=== PATIENT | male | born 1945 | race Caucasian/White ===

== ENCOUNTER 2017-10-04 12:42 | Emergency (ER) | payer MEDICARE, SELFPAY ==
[2017-10-04 12:43] VITALS: BP 121/71; PULSE 100; RESP 17; TEMP 37.1; O2SAT 93; BMI 27.8
--- NOTE | 2017-10-04 13:00 | RAD_ITS ---
STUDY: X-RAY - UNILATERAL RIBS ( LEFT ) WITH CHEST REASON FOR EXAM: Male, 72 years old. Left-sided rib pain following a recent fall. TECHNIQUE - RIBS: 5 view(s) of the ribs. TECHNIQUE - CHEST: Single PA view of the chest. COMPARISON: Comparison is made with prior chest radiograph dated October 24, 2016. FINDINGS - RIBS: Normal visualized ribs without a demonstrated fracture. FINDINGS - CHEST: Scattered calcified granulomas. There is no demonstrated pleural abnormality. Normal size heart. Normal mediastinum and louann. Normal visualized pulmonary arteries. There is atherosclerotic calcification of the aortic arch with tortuosity. Normal visualized thoracic spine. Normal visualized ribs, clavicles, and shoulders. Prior cholecystectomy. RAD/Ribs Uni Min 3V w/PA Chest IMPRESSION: RIBS: Normal x-ray examination of the ribs. CHEST: No acute abnormality is seen. Electronically Signed: Jose Reynolds MD at 13:51 EDT Tel [phone], Service support ,
[2017-10-04] MEDS: Acetaminophen 500 MG Tablet 1000 MG PO (13:21)
--- NOTE | 2017-10-04 14:30 | ED.VISSUMM ---
- ER Visit Summary Date of Service: 10/04/17 Chief Complaint: Left rib pain History of Present Illness: The patient is a [address] Can. He reports that he slipped in the bathtub 2 days ago landed on the left side of his chest. Reports that today he went to lift the manual garage and his pain got much worse. It is a sharp pain that is 8 out of 10 at worst and 6 out of 10 currently. He denies any other injuries. Physical Examination: Vitals: Stable. Afebrile. Neck: No vertebral tenderness. Full ROM without difficulty. Cleared by NEXUS criteria. Back: No vertebral tenderness. General: A&O x 3. NAD. Cardiovascular exam: Regular rate and rhythm, no murmur, rub or gallop. Respiratory exam: Moderate tenderness palpation of the lower ribs on the left laterally. No pain with anterior posterior compression of his chest. No crepitus. Clear to auscultation bilaterally. No wheezes or stridor. Abdominal exam: Soft, nontender, nondistended, normal bowel sounds. No pain in RUQ or LUQ specifically. No peritoneal signs. Extremity: Atraumatic. No pain with range of motion. Test Results: Left rib series was negative. Emergency Department Course and Treatment: Patient drove here so was treated with Tylenol. He was given an incentive spirometer. Treatment Plan: Patient will be discharged with [place] and Colace. Instructed to follow-up with his primary care physician 1 week if not improving. Return to the emergency department for any worsening symptoms. Disposition: To home in improved and stable condition. Impression: 1. Left chest wall contusion. This note was generated with [employer] dictation software. It may contain incorrect words, spelling, and punctuation that were not noted in review of the chart prior to signing ED Disposition - Plan for ED Patient: Disposition: Home or Assisted Living Chief Complaint: Fall Instructions: ED Contusion Vs Minor Fx Rib Prescriptions: Hydrocodone Bitart/Apap 5-325 [[place] 5MG-325MG] 1 tablet PO Q6H PRN PRN 3 Days #10 tablet PRN Reason: Pain Docusate Sodium [Colace] 100 mg PO DAILY #20 capsule Referrals: Lizette Can MD [Primary Care Provider] - 1 Week if not improving
== END 2017-10-04 14:44 | disposition home or self-care (01) ==
PROVIDERS: Emergency Provider Emergency Medicine; Family Provider Family Medicine; PCP Family Medicine
DX: S20.212A Contusion of left front wall of thorax, initial encounter (principal); Z87.891 Personal history of nicotine dependence; X50.0XXA Overexertion from strenuous movement or load, initial encounter; Y93.89 Activity, other specified; Y92.008 Other place in unspecified non-institutional (private) residence as the place of occurrence of the external cause; Y99.8 Other external cause status
CPT/HCPCS: 71101; 99283

== ENCOUNTER 2017-12-08 16:04 | Emergency (ER) | payer MEDICARE, SELFPAY ==
[2017-12-08 16:05] VITALS: BP 137/76; PULSE 87; RESP 18; TEMP 37; O2SAT 96; BMI 27.3
--- NOTE | 2017-12-08 16:24 | EKG12_ITS ---
Test Reason : CP Blood Pressure : / mmHG Vent. Rate : 078 BPM Atrial Rate : 078 BPM P-R Int : 144 ms QRS Dur : 104 ms QT Int : 366 ms P-R-T Axes : 019 -41 -03 degrees QTc Int : 417 ms Normal sinus rhythm Left axis deviation Abnormal ECG Confirmed by BROOKS COBB, HEIDI ([id number]), online editor YUDELKA SCOTT ([id number]) on 12/10/2017 3:10:54 PM Referred By: BREANNE Confirmed By:HEIDI GUY MD
--- NOTE | 2017-12-08 16:26 | ED.VISSUMM ---
- ER Visit Summary Date of Service: 12/08/17 Chief Complaint: Fatigue History of Present Illness: The patient is a 72 M states for the past week he has felt rather fatigued. For about 3 days he has felt pins in his face that are now constant. For 2 days he has had intermittent pins in his chest. No shortness of breath or cough. No sore throat but does admit to some rhinorrhea. No vomiting or diarrhea. No rashes. No leg or arm symptoms. No dyspnea or dyspnea on exertion. He has a history of acid reflux and BPH. Physical Examination: Afebrile vital signs stable Gen: Well-nourished well-developed Head: Normocephalic atraumatic Eyes: Perrl EOMI ENT: TMs clear no rhinorrhea moist mucous membranes Neck: Supple no lymphadenopathy no JVD nontender CVS: Regular rate rhythm no murmurs normal S1-S2 Respiratory: No distress clear to auscultation bilaterally chest nontender Abdomen: Soft nontender nondistended normal bowel sounds no masses Back: Nontender Extremity: Nontender no edema Skin: Normal color no rash Neuro: alert orientated ?3 CN II-XII intact normal strength sensation reflexes gait cerebellar Psych: Flat affect Test Results: EKG shows a sinus rhythm at a rate of 78. Urinalysis was normal. CBC chemistries showed a BUN of 25 creatinine 0.99. White count 5.5. Troponin negative Emergency Department Course and Treatment: I do not see a clear etiology for the patient's pain. It is very atypical for cardiac he has a negative EKG and negative troponin. Therefore I think is very unlikely this is cardiac. I do not see an obvious life-threatening cause of it. Patient will follow up with his doctor later this week if symptoms persist. Impression: 1. Atypical chest pain 2. Facial paresthesias 3. Fatigue This note was generated with [employer] dictation software. It may contain incorrect words, spelling, and punctuation that were not noted in review of the chart prior to signing ED Disposition - Plan for ED Patient: Disposition: Home or Assisted Living Chief Complaint: Chest Pain Instructions: ED Chest Pain Atypical Unkn Cause, ED Paraesthesias Referrals: Lizette Can MD [Primary Care Provider] - 3-5 Days if not improving
--- NOTE | 2017-12-08 16:42 | RAD_ITS ---
STUDY: X-RAY CHEST REASON FOR EXAM: Male, 72 years old. Chest pain TECHNIQUE: PA and lateral COMPARISON: October 24, 2016 FINDINGS: Mild hyperinflation and chronic interstitial changes There is no demonstrated pleural abnormality. Normal size heart. Normal mediastinum and louann. Normal visualized pulmonary arteries. Normal visualized aortic arch and descending thoracic aorta. Dorsal spine demonstrates spondylosis Normal visualized ribs, clavicles, and shoulders. There is no demonstrated abnormality of the visualized soft tissue structures of the upper abdomen. No significant change since prior study RAD/Chest PA and Lateral IMPRESSION: Mild COPD. No acute disease Electronically Signed: Medardo Lai MD at 17:30 EDT , Service support ,
[2017-12-08 16:49] LABS: Absolute Lymphocyte Count 1.55 X10^3/ul (0.83-4.51); Absolute Neutrophil Count 3.3 X10^3/uL (2.0-7.7); Basophil# 0.02 X10^3/uL; Basophil% 0.4 % (0-1); Eosinophil# 0.08 X10^3/uL; Eosinophils% 1.5 % (0-5); Hematocrit 42.9 % (40-54); Hemoglobin 14.4 g/dl (13.0-16.5); Lymphocyte # 1.55 X10^3/ul (4.0); Lymphocyte % 28.4 % (19-41); Mean Corp Hgb Conc 33.6 g/gl (32-36); Mean Corpuscular Hgb 32.8 pg (27.0-32.0); Mean Corpuscular Volume 97.7 fL (80-94); Mean Platelet Vol. 9.9 fl (6.2-12.0); Monocyte# 0.54 X10^3/uL; Monocyte% 9.9 % (0-10); Neutrophil # 3.25 X10^3/uL (2.7-7.7); Neutrophil % 59.6 % (47-70); Platelet Count 129 K/mm3 (150-450); RBC Distribution Width SD 42.9 fl (35.1-43.9); Red Blood Count 4.39 M/mm3 (4.6-6.2); White Blood Count 5.5 K/mm3 (4.4-11.0)
[2017-12-08 16:50] LABS: POSITIVE COUNT NO; POSITIVE DIFFERENTIAL NO; POSITIVE MORPHOLOGY NO
[2017-12-08 17:00] LABS: International Normalized Ratio 1.1; Prothrombin Time (Protime)PT. 13.8 SECONDS (11.7-14.9)
[2017-12-08 17:08] VITALS: BP 137/73; PULSE 81; RESP 22; O2SAT 93
[2017-12-08 17:08] LABS: AST(SGOT) 30 U/L (15-37); Alanine Aminotransfer ALT/SGPT 47 U/L (16-61); Albumin, Serum 3.8 g/dL (3.2-5.0); Alkaline Phosphatase 81 U/L (45-117); Anion Gap 4 (5-15); BUN 25 mg/dL (7-18); BUN/Creat Ratio 25.4 RATIO (10-20); Calcium,Total 8.8 mg/dL (8.5-10.1); Chloride 107 mmol/L (98-107); Creatinine, Serum 0.99 mg/dL (0.70-1.30); EST Glomerular Filtration Rate 79 mL/min (>60); Est Glom Filt Rate - Afr Amer 96 mL/min (>60); Estimated Creatinine Clearance 70.78 ml/min; Globulin 3.7 g/dL (2.2-4.2); Glucose 104 mg/dL (74-106); Lactic Acid 1.2 mmol/L (0.4-2.0); Lipase 117 U/L (73-393); Potassium 3.8 mmol/L (3.5-5.1); Protein, Total 7.5 g/dL (6.4-8.2); Sodium Level 141 mmol/L (136-145)
[2017-12-08 17:13] LABS: Bacteria 0 SEEN /hpf (None Seen); Mucous, Urine 0 SEEN /hpf (<or=2+); Squamous Epithelial Cells - UA 0 SEEN /hpf (0-5); White Blood Cells 0 SEEN /hpf (0-5)
[2017-12-08 17:14] LABS: Color, Urine Yellow (Yellow); Glucose, Dipstick Normal (Normal); Ketone-Dipstick Negative (Negative); Leukocyte Esterase-Dipstick Negative /ul (Negative); Nitrite-Dipstick Negative (Negative); Occult Blood-Urine 10 /ul (Negative); Protein-Dipstick 15 mg/dl (Negative); Specific Gravity, Urine 1.025 (1.002-1.030); Urine Bilirubin Dipstick Negative (Negative); Urine Clarity Clear (Clear); Urine Urobilinogen 1 mg/dl (Normal)
[2017-12-08 17:27] LABS: Red Blood Cells-Urine 0-5 SEEN /hpf (0-5)
[2017-12-08 18:34] VITALS: BP 131/76; PULSE 82; RESP 16; O2SAT 96
[2017-12-08 18:37] VITALS: BP 131/76; PULSE 82; RESP 16; O2SAT 96
== END 2017-12-08 18:41 | disposition home or self-care (01) ==
PROVIDERS: Emergency Provider Emergency Medicine; Family Provider Family Medicine; PCP Family Medicine
DX: R07.89 Other chest pain (principal); R20.2 Paresthesia of skin; R53.83 Other fatigue; K21.9 Gastro-esophageal reflux disease without esophagitis; N40.0 Benign prostatic hyperplasia without lower urinary tract symptoms; Z79.899 Other long term (current) drug therapy
CPT/HCPCS: 71046; 80053; 81001; 83605; 83690; 84484; 85025; 85610; 93005; 99284; A4216

== ENCOUNTER → 2018-05-14 10:45 | Outpatient (CLI) | payer MEDICARE, SELFPAY ==
[2018-05-14 11:54] LABS: PSA,Total - Annual Screen 1.22 ng/mL (0.00-4.00)
== END ==
PROVIDERS: Family Provider Family Medicine; PCP Family Medicine; Referring Provider Nurse Practitioner Adult Health; Visit Provider Nurse Practitioner Adult Health
DX: Z12.5 Encounter for screening for malignant neoplasm of prostate (principal)
CPT/HCPCS: 36415; 84153; G0103

== ENCOUNTER → 2019-05-19 11:41 | Outpatient (CLI) | payer MEDICARE, SELFPAY ==
[2019-05-19 13:36] LABS: PSA,Total - Annual Screen 1.08 ng/mL (0.00-4.00)
== END ==
PROVIDERS: Family Provider Family Medicine; PCP Family Medicine; Referring Provider Nurse Practitioner Adult Health; Visit Provider Nurse Practitioner Adult Health
DX: Z12.5 Encounter for screening for malignant neoplasm of prostate (principal)
CPT/HCPCS: 36415; 84153; G0103

== ENCOUNTER → 2020-05-27 10:28 | Outpatient (CLI) | payer MEDICARE, SELFPAY ==
[2020-05-27 11:10] LABS: PSA,Total - Annual Screen 0.84 ng/mL (0.00-4.00)
== END ==
PROVIDERS: PCP Family Medicine; Referring Provider Nurse Practitioner Adult Health; Visit Provider Nurse Practitioner Adult Health
DX: Z12.5 Encounter for screening for malignant neoplasm of prostate (principal)
CPT/HCPCS: 36415; 84153; G0103

== ENCOUNTER → 2020-06-24 09:04 | Outpatient (CLI) | payer MEDICARE, SELFPAY ==
--- NOTE | 2020-06-24 09:08 | EKG12_ITS ---
Test Reason : PRE OP Blood Pressure : / mmHG Vent. Rate : 081 BPM Atrial Rate : 081 BPM P-R Int : 138 ms QRS Dur : 134 ms QT Int : 384 ms P-R-T Axes : 027 -63 004 degrees QTc Int : 446 ms Normal sinus rhythm Right bundle branch block Left anterior fascicular block Bifascicular block Abnormal ECG Confirmed by TRAN COBB, ANTHONY ([id number]), news copy editor ROSEMARY JOYA ([id number]) on 06/27/2020 12:33:58 P M Referred By: Yonathan Johnson Confirmed By:MALORIE MAYFIELD MD
[2020-06-24 10:41] LABS: Hematocrit 44.5 % (40-54); Hemoglobin 14.6 g/dL (13.0-16.5); Mean Corp Hgb Conc 32.8 g/dL (32-36); Mean Corpuscular Hgb 32.3 pg (27.0-32.0); Mean Corpuscular Volume 98.5 fL (80-94); Mean Platelet Vol. 9.8 fl (6.2-12.0); Platelet Count 141 K/mm3 (150-450); RBC Distribution Width CV 11.9 % (11.6-14.6); RBC Distribution Width SD 43.1 fl (35.1-43.9); Red Blood Count 4.52 M/mm3 (4.6-6.2); White Blood Count 5.5 K/mm3 (4.4-11.0)
[2020-06-24 11:00] LABS: Anion Gap 4 (5-15); BUN 26 mg/dL (7-18); BUN/Creat Ratio 26.1 RATIO (10-20); Calcium,Total 9.2 mg/dL (8.5-10.1); Chloride 108 mmol/L (98-107); EST Glomerular Filtration Rate 78 mL/min (>60); Est Glom Filt Rate - Afr Amer 94 mL/min (>60); Glucose 125 mg/dL (74-106); Potassium 3.8 mmol/L (3.5-5.1); Sodium Level 143 mmol/L (136-145)
== END ==
PROVIDERS: PCP Family Medicine; Referring Provider Urology; Visit Provider Urology
DX: Z01.818 Encounter for other preprocedural examination (principal); Z11.59 Encounter for screening for other viral diseases
CPT/HCPCS: 36415; 80048; 85027; 87635; 93005; C9803; U0005; U0003

== ENCOUNTER → 2021-09-15 | Outpatient (CLI) | payer MEDICARE, SELFPAY ==
--- NOTE | 2021-09-15 10:12 | RAD_ITS ---
STUDY: X-RAY - ABDOMEN/PELVIS REASON FOR EXAM: Male, 76 years old. History of LINX procedure TECHNIQUE: Two AP supine views of the abdomen and pelvis. COMPARISON: October 18, 2016. FINDINGS: Normal visualized lung bases. There is mild gaseous distention of bowel loops. There is moderate stool. There is no demonstrated free abdominal air. There are surgical clips in the right upper quadrant of the abdomen. There is degenerative change of the spine. There is right hip pinning. RAD/Abdomen Single View IMPRESSION: Mild gaseous distention of bowel loops suggesting ileus or enteritis. Prior cholecystectomy. Electronically Signed: Yaya Oconnell MD at 11:23 EDT Reading Location ID and State: [facility] / [place] , Service support ,
== END | disposition home or self-care (01) ==
LOC: RAD 09:59
PROVIDERS: PCP Family Medicine; Visit Provider Internal Medicine Gastroenterology
DX: K21.9 Gastro-esophageal reflux disease without esophagitis (principal)
CPT/HCPCS: 74018

== ENCOUNTER 2021-12-13 10:47 | Day surgery (SDC) | payer MEDICARE, SELFPAY ==
[2021-12-13] VITALS (7 sets, daily range): BP systolic 107–139; BP diastolic 69–77; PULSE 53–63; RESP 16–18; TEMP 36.1–36.4; O2SAT 93–98; BMI 27.4
--- NOTE | 2021-12-13 | IMM_PTH ---
PATIENT: SHAQUILLE LITTLEJOHN LOC: EN U#:[id number] AGE/SX: 76/M ROOM: RE12/13/[address]: Dr. Mihir Zuluaga DO : 1945 BED: DIS: 12/13/2021 SPEC #: [id number] RECD: 12/15/21 12:47 STATUS: SHREYA REAnnalise #: [id number] AMILCAR: 12/13/21 00:[address]: Mihir Zuluaga DEPT: IMMUNOHISTOCHEMISTRY RECD BY: Michelle Maldonado ENTERED: 12/15/21 12:48 SP TYPE: IMMUNO OTHR DR: Fide Oswald, THERMOMETER PRODUCTION WORKER-C Tissues: Esophagus, NOS Procedures: P53 (initial) KI-67 (add) PHYSICIAN & [place] [id number] SPECIMEN INFORMATION: Tissue Source: Distal esophagus biopsy Clinical Info: GERD Specimen Number: [id number] CPT code: 75149, 93166 METHODOLOGY: Deparaffinized sections of prefer/formalin-fixed tissue or PAP/DQ stained slides are incubated with monoclonal/polyclonal antibodies/oligonucleotide probes. Localization is made via biotin free immunoperoxidase method. Appropriate controls are performed and reacted as expected. Results on target cell population are indicated in the following table: RESULTS: ANTIBODY / CLONE RESULT P53 (DO-7) negative Ki-67 (30-9) positive, low These tests were developed and their performance characteristics determined by [facility]. They may not have been cleared or approved by the U.S. Food and Drug Administration. The FDA has determined that such clearance or approval is not necessary. The above immunohistochemical/dualISH markers are ordered and reviewed by the Pathologist. INTERPRETATION: Distal esophagus, biopsy: No evidence of dysplasia. AM:letitia 12/18/2021
[2021-12-13] MEDS: Lactated Ringers 1,000 ML 15 ML IV (11:10)
--- NOTE | 2021-12-13 12:00 | EGD_PTH ---
PATIENT: SHAQUILLE LITTLEJOHN LOC: EN U#:[id number] AGE/SX: 76/M ROOM: RE12/13/[address]: Dr. Mihir Zuluaga DO : 1945 BED: DIS: 12/13/2021 SPEC #: [id number] RECD: 12/13/21 13:55 STATUS: SHERYA FADUMO #: [id number] AMILCAR: 12/13/21 12:[address]: Mihir Zuluaga DEPT: SURGICAL PATHOLOGY RECD BY: Laurie Turcios ENTERED: 12/14/21 09:36 SP TYPE: EGD BIOPSY KANDICE DR: Fide Oswald, DENTAL PRACTICE MANAGER-C Tissues: Esophagus, NOS Procedures: Special Stain Group II Surgery Specimen Level IV Alcian Blue/PAS (control) HEADER OPERATION: EGD with biopsy and dilation (MAC) PRE-OP DIAGNOSIS: GERD TISSUE SUBMITTED: Distal esophagus biopsy MICROSCOPIC DIAGNOSIS Distal esophagus, biopsy: Fragments of gastric mucosa with chronic inflammation. Focal goblet cell metaplasia. No evidence of dysplasia. See comment. AM:letitia 12/15/2021 COMMENT Alcian blue/PAS stain with matched control supports the above diagnosis. Immunohistochemistry ([id number]) for P53 and Ki-67 will be performed and results will be reported separately. MICROSCOPIC DESCRIPTION Slides are reviewed. GROSS DESCRIPTION Received in fixative is one container labeled with the patient's name and designated distal esophagus biopsy. The specimen consists of two irregular fragments of light alba soft tissue that in aggregate measure 0.6 x 0.3 x 0.1 cm. The specimen is totally submitted in one cassette. / SJ:letitia 12/14/2021 TC:3 CPT: 52219, 64623
--- NOTE | 2021-12-13 12:26 | HP.PCM_ITS ---
History and Physical Date of Admission: 12/13/21 VALENTINA LITTLEJOHN, is a 76 M who presents to the office today for Initial consultation. Sudhir established with this clinic 5.11.01 PMH includes anemia, GERD, COPD, unintentional weight loss, elevated LFT, benign neoplasm of large intestine, IBS-D, gastritis. Cholecystectomy early . Colonoscopy performed with Dr. Cardona 02.06.21 finding numerous diverticula throughout sigmoid area and transverse colon. Diverticulosis and mycosis throughout left colon; internal hemorrhoids. Biopsy results without pathological change. Negative for microscopic colitis. Elevated CRP (1.1) and ESR (24). Vitamin D WNL. CMP WNL save elevated BUN 26. Lipids triglyceride elevated 180, HDL low 37. LFT WNL. He was having issues with diarrhea when apt was made. He was taking simvastatin 40mg, then reduced to 20mg, then he stopped and diarrhea resolved. Currently he is having issues with increased flatulence and lower abdominal pain, periodic nausea with this. Reports fluctuating bowel movement: will got for several days without a bowel movement and will then have 3 BM in a day. He uses prune juice to promote a BM, when he remembers. PCP had him stop dairy products because this increased gas, but this has not made a difference. Denies aggravating or alleviating factors. Medications include dicyclomine QD, dutasteride QD, tamsulosin QD, omeprazole QD. ROS Const Constitutional: No fatigue, malaise, night sweats, weight change, sleep problems, abnormal sleep pattern or change in appetite ENT ENT: No difficulty swallowing, hoarseness or sore throat Cardio Cardiology: No chest pain at rest Gastro GI: No abdominal pain, belching, bloating, change in bowel habits, change in stool character, coffee ground emesis, cramping, diarrhea, heartburn, difficulty swallowing, feeling full early, incontinent of stools, Vomiting blood/hematemesis, Blood in stool, loose stools, Black,tarry stools, pain with swallowing, vomiting or other Musc Musculoskeletal: No joint pain Skin Skin: No yellowing of the eye or itchy eyes Neuro Neurology: No behavioral changes Psych Psychiatric: No abnormal sleep pattern, No anxiety, No behavioral changes, No change in appetite and No depression Endo Endocrine: No fatigue or weight change Aller/Imm Allergy/Immunologic: No itchy eyes Joshua/Lymp Hematologic/Lymphatic: No easy bleeding or easy bruising Exam Const General: cooperative and comfortable Nutritional Appearance: average body habitus and well nourished HENMT Head: normal to inspection Ears: hearing grossly normal bilaterally Nose: external nose normal Face and sinus: normal facial exam Mouth: oral mucosae normal Throat: posterior oropharynx normal Eyes General: appearance normal, both eyes and all related structures Neck Neck: normal visual inspection Chest Chest palpation & inspection: normal inspection of the chest and normal palpation of entire chest wall Resp Effort & Inspection: normal respiratory effort Auscultation: Bilateral: Clear to Auscultation Cardio Palpation: normal PMI Rate: regular rate Rhythm: regular rhythm GI Inspection: normal to inspection Auscultation: normal bowel sounds Percussion: normal to percussion Palpation: no hepatosplenomegaly Skin General: no rashes or lesions noted Neuro General: patient alert Extrem General: normal to inspection Psych Affect: normal affect Quality Reporting Tobacco Screening ([facility] 138) Smoking Status: Former smoker Assessment and Plan Assessment and Plan (1) Flatulence: ?Status:?Acute ?Plan - Dr. Ash Friend, DO: His flatulence is possibly secondary to bacterial overgrowth from chronic constipation in the setting of diverticular disease. I recommend doxycycline 100mg twice a day x 14 days. (2) Constipation: ?Status:?Acute ?Plan - Dr. Ash Friend, DO: Possibly medication induced versus swelling and inflammation around the the diverticuli. Recommed Reglan 5mg QID x 2 weeks. His constipation my resolved by then. If not we will have to add an osmotic laxative. (3) GERD (gastroesophageal reflux disease): ?Status:?Chronic ? ? ? Orders:?Orders: ? EGD Today ? ? ? Abdomen Single View Today ?Plan - Dr. Ash Friend, DO: He will continue on PPI therapy.? We will start him on Carafate therapy. (4) Abdominal pain: ?Status:?Acute ?Plan - Dr. Ash Friend, DO: Abdominal pain secondary to chronic constipation mild diverticular disease.? He does have history of hernia repair and will need a KUB to make sure Obstruction.? Patient was okay with this plan. Plan Details Other Medications: ?New: ? doxycycline hyclate ?? take two times a day for thirty days 100 mg? PO BID 60 caps 0RF ? ? ? metoclopramide HCl (Reglan) ?? take one at bedtime. 5 mg? PO QHS 14 tabs 0RF ? ? I have re-examined the patient. There are no clinical changes since date of exam.
--- NOTE | 2021-12-13 12:56 | OP.EGD_ITS ---
Patient Name: Sudhir Rodas Procedure Date: 12/13/2021 12:31 PM Date of : 1945 Age: 76 Procedure: Upper GI endoscopy Indications: Epigastric abdominal pain, Dysphagia, Heartburn Providers: Mihir Zuluaga DO Referring MD: Mihir Zuluaga DO Medicines: Monitored Anesthesia Care Patient Profile: This is a 76 year old male. Refer to note in patient chart for documentation of history and physical. Patient has symptoms of chronic epigastric abdominal pain and chronic dysphagia. Complications: No immediate complications. Procedure: Pre-Anesthesia Assessment: - Prior to the procedure, a History and Physical was performed, and patient medications and allergies were reviewed. The risks and benefits of the procedure and the sedation options and risks were discussed with the patient. All questions were answered and informed consent was obtained. Patient identification and proposed procedure were verified by the physician in the pre-procedure area. Mental Status Examination: alert and oriented. Airway Examination: normal oropharyngeal airway and neck mobility. Respiratory Examination: clear to auscultation. CV Examination: normal. Prophylactic Antibiotics: The patient does not require prophylactic antibiotics. Prior Anticoagulants: The patient has taken no previous anticoagulant or antiplatelet agents. After reviewing the risks and benefits, the patient was deemed in satisfactory condition to undergo the procedure. The anesthesia plan was to use moderate sedation / analgesia (conscious sedation). Immediately prior to administration of medications, the patient was re-assessed for adequacy to receive sedatives. The heart rate, respiratory rate, oxygen saturations, blood pressure, adequacy of pulmonary ventilation, and response to care were monitored throughout the procedure. The physical status of the patient was re-assessed after the procedure. After obtaining informed consent, the endoscope was passed under direct vision. Throughout the procedure, the patient's blood pressure, pulse, and oxygen saturations were monitored continuously. The Endoscope was introduced through the mouth, and advanced to the second part of duodenum. The upper GI endoscopy was accomplished without difficulty. The patient tolerated the procedure well. Scope In: 12:40:26 PM Scope Out: 12:48:07 PM Total Procedure Duration Time 0 hours 7 minutes 41 seconds Findings: The examined esophagus was moderately tortuous. A guidewire was placed and the scope was withdrawn. Dilation was performed with a Savary dilator with no resistance at 60 Fr. The dilation site was examined following endoscope reinsertion and showed moderate improvement in luminal narrowing. Estimated blood loss was minimal. LA Grade A (one or more mucosal breaks less than 5 mm, not extending between tops of 2 mucosal folds) esophagitis with no bleeding was found 37 to 38 cm from the incisors. Biopsies were taken with a cold forceps for histology. Verification of patient identification for the specimen was done. Estimated blood loss was minimal. No gross lesions were noted in the entire examined stomach. No gross lesions were noted in the first portion of the duodenum. Impression: - Tortuous esophagus. - LA Grade A reflux esophagitis. Biopsied. - No gross lesions in the stomach. - No gross lesions in the first portion of the duodenum. Recommendation: - Discharge patient to home. - Resume previous diet. - Continue present medications. - Await pathology results. Procedure Code(s): --- Professional --- 27820, Esophagogastroduodenoscopy, flexible, transoral; with insertion of guide wire followed by passage of dilator(s) through esophagus over guide wire 77702, 59,51, Esophagogastroduodenoscopy, flexible, transoral; with biopsy, single or multiple CPT copyright 2017 [employer]. All rights reserved. The codes documented in this report are preliminary and upon survival equipment repairer review may be revised to meet current compliance requirements. Mihir Zuluaga DO 12/13/2021 12:55:55 PM This report has been signed electronically. Number of Addenda: 1 Note Initiated On: 12/13/2021 12:31 PM Addendum Number: 1 Addendum Date: 02/15/2022 6:32:18 AM MAC was used as sedation for this procedure. Mihir Zuluaga DO 02/15/2022 6:32:22 AM This report has been signed electronically.
--- NOTE | 2021-12-13 12:57 | OP.CCLET_ITS ---
02/15/2022 Nitish Browning [address] [place] [address] Re : Upper GI endoscopy procedure for [facility] Dear Dr. Browning This procedure was performed on Monday, December 13, 2021. My impressions and recommendations are as follows: Impressions : - Tortuous esophagus. - LA Grade A reflux esophagitis. Biopsied. - No gross lesions in the stomach. - No gross lesions in the first portion of the duodenum. Recommendations : - Discharge patient to home. - Resume previous diet. - Continue present medications. - Await pathology results. My findings are described in the full procedure note, which is enclosed. If I can be of further assistance, please feel free to contact me at . Sincerely, Mihir Zuluaga, 12/13/2021 12:55:55 PM This report has been signed electronically.
== END 2021-12-13 13:43 | disposition home or self-care (01) ==
LOC: EN 10:48 → AC 10:49
PROVIDERS: PCP Nurse Practitioner Family; Referring Provider Nurse Practitioner Family; Visit Provider Internal Medicine Gastroenterology
PROC: 0DJ08ZZ Inspection of Upper Intestinal Tract, Via Natural or Artificial Opening Endoscopic (ICD-10-PCS; CPT 43235; principal; 2021-12-13 11:55)
DX: K21.00 Gastro-esophageal reflux disease with esophagitis, without bleeding (principal); Q39.8 Other congenital malformations of esophagus; R63.4 Abnormal weight loss; E78.00 Pure hypercholesterolemia, unspecified; Z79.82 Long term (current) use of aspirin; Z79.899 Other long term (current) drug therapy; Z87.891 Personal history of nicotine dependence; Z68.27 Body mass index [BMI] 27.0-27.9, adult
CPT/HCPCS: 43248; 43239; 88305; 88313; 88341; 88342; J7120; C1769; J2405

== ENCOUNTER → 2022-06-14 | Outpatient (CLI) | payer MEDICARE, SELFPAY ==
[2022-06-14 11:21] LABS: PSA,Total - Annual Screen 0.89 ng/mL (0.00-4.00)
== END | disposition home or self-care (01) ==
LOC: LAB 10:12
PROVIDERS: PCP Nurse Practitioner Family; Visit Provider Registered Nurse
DX: Z12.5 Encounter for screening for malignant neoplasm of prostate (principal)
CPT/HCPCS: 36415; 84153; G0103

== ENCOUNTER → 2023-06-10 | Outpatient (CLI) | payer MEDICARE, SELFPAY ==
--- OUTSIDE RECORDS SUMMARY | 2023-06-10 14:42 | XMS RPT_ITS | CCD ---
Author Name Unknown Address [address] [place] [address] Organization [facility] Care Team Providers Care Commercial Real Estate Appraiser Name Role Phone IVANNA EDUARDO DO Primary Care Physician [phone] Sunni Grady PT Unavailable Unavailable KENNEDY SILK TOP HAT BODY MAKER-BEESWAX BLEACHER, MARCEL Primary Care Physician [phone] VIANEY STOVER-VENU, STERLING Primary Care Physician [phone] VIANEY STOVER-VENU, STERLING Primary Care Physician ([phone]) VIANEY SILK TOP HAT BODY MAKER-BEESWAX BLEACHER, STERLING Attending Unavailabl e BALTES SILK TOP HAT BODY MAKER-BEESWAX BLEACHER, STERLING Primary Care Unavailabl e BALZOILA SILK TOP HAT BODY MAKER-BEESWAX BLEACHER, STERLING Attending Unavailabl e BALZOILA SILK TOP HAT BODY MAKER-BEESWAX BLEACHER, STERLING Primary Care Unavailabl e HAYLEY SEN, JEROD Bennett Attending Unavailable KENNEDY SILK TOP HAT BODY MAKER-BEESWAX BLEACHER, MARCEL Primary Care Unavaila lars HARDY PA-C, JEROD Bennett Referring Unavailable LENIN COBB, CHRISTIE Zamarripa Attending Unavailable KENNEDY SILK [employer] HAT B[employer] MAKER-BEESWAX BLEACHER, MARCEL Primary Care Unavaila lars CARDONA SILK TOP HAT BODY MAKER-BEESWAX BLEACHER, LAURA Vázquez Attending Zeinab vailable BALZOILA SILK TOP HAT BODY MAKER-BEESWAX BLEACHER, STERLING Primary Care Unavailabl e BRENDAN SÁNCHEZN-BEESWAX BLEACHER, LAURA Vázquez Attending Zeinab vailable KENNEDY SILK TOP HAT BODY MAKER-BEESWAX BLEACHER, MARCEL Primary Care Unavaila ble BRENDAN SÁNCHEZN-BEESWAX BLEACHER, LAURA Vázquez Attending Zeinab vailable KENNEDY SILK TOP HAT BODY MAKER-BEESWAX BLEACHER, MARCEL Primary Care Unavaildebi PRICE MD., LILIAN Kurtz Attending Unavailable KENNEDY SILK TOP HAT BODY MAKER-BEESWAX BLEACHER, MARCEL Primary Care Unavaila ble BALZOILA SILK TOP HAT BODY MAKER-BEESWAX BLEACHER, STERLING Attending Unavailabl e BALTES SILK TOP HAT BODY MAKER-BEESWAX BLEACHER, STERLNIG Primary Care Unavailabl e Allergies Allergy Classification Reported Allergen(s) Allergy Type Date of Onset Reaction(s) Facility (11 sources) Aspirin; Translations: [aspirin] Drug Allergy STOMACH UPSET [facility] (11 sources) Bacitracin; Translations: [bacitracin] Drug Allergy RASH [facility] (11 sources) Naproxen; Translations: [naproxen] Drug Allergy upset stomache [facility] Medications Current Medications Medication Drug Class(es) Dates Sig (Normalized) Sig (Original) acetaminophen 500 mg oral capsule (11 sources) Start: 02-08-2021 acetaminophen 500 mg oral capsule Dose : 1,000 mg = 2 cap(s), Oral, TID, PRN for pain, # 120 cap(s), 0 Refill(s) Start Date: 02/08/21 Status: Ordered acetaminophen 325 mg / HYDROcodone bitartrate 5 mg oral tablet (1 source) Opioid Agonist Start: 12-10-2021 End: 12-12-2021 take 1 tablet by mouth every six hours as needed for pain Clear 325- 5 mg oral tablet Dose = 1 tab(s), Oral, q6h, PRN as needed for pain, # 10 tab(s), 0 Refill(s), Dentalgia, 92.3 Start Date: 12/10/21 Stop Date: 12/12/21 Status: Ordered aspirin 81 mg oral tablet (1 source) Platelet Aggregation Inhibitor, Nonsteroidal Anti-inflammatory Drug Start: 07-06-2021 End: 08-05-2021 [facility] Aspirin 81 mg oral tablet, (chewable) Dose : 81 mg = 1 tab(s), Chewed, qDay, 0 Refill(s) Start Date: 07/06/21 Stop Date: 08/05/21 Status: Ordered bimatoprost 0.1 mg/ml ophthalmic solution (7 sources) Prostaglandin Analog Start: 11-30-2021 Lumigan 0.01% ophthalmic solution Dose = 1 drop(s), Eyes, both, qPM, 0 Refill(s) Start Date: 11/30/21 Status: Ordered Completed/Discontinued Medications Medication Drug Class(es) Dates Sig (Normalized) Sig (Original) aloe vera & sodium bicarb (2 sources) Start: 06-08-2022 aloe vera & sodium bicarb aloe vera & sodium bicarb, 1 TBSP each, Oral, BID, Dr. Alvarado, mis together with water. 1 TBSP each, 0 Refill(s), Start Date: 06/08/22 Status: Ordered doxycycline hyclate 100 mg oral capsule (1 source) Tetracycline-clas s Drug Start: 06-08-2022 doxycycline hyclate 100 mg oral capsule Dose : 100 mg = 1 cap(s), Oral, BID, 0 Refill(s), 93 Start Date: 06/08/22 Status: Ordered Problems Active Problems Problem Classification Problem Date Documented Date Episodic/Chronic Abdominal hernia (11 sources) Bilateral recurrent inguinal hernia 08-29-2020 Episodic Abdominal pain (20 sources) Bilateral pain of inguinal region; Translations: [Epigastric pain] 03-02-2021 Episodic Biliary tract disease (11 sources) Chronic cholecystitis 08-29-2020 Episodic Congestive heart failure; nonhypertensive (11 sources) Chronic diastolic heart failure 02-08-2021 Chronic Disorders of lipid metabolism (11 sources) Dyslipidemia 02-08-2021 Chronic Disorders of teeth and jaw (1 source) Disorder of teeth AND/OR supporting structures; Translations: [Other specified disorders of teeth and supporting structures] Onset: 12-10-2021 Episodic E Codes: Fall (1 source) Fall on ice; Translations: [Unspecified fall due to ice and snow, initial encounter] Episodic Esophageal disorders (11 sources) Gastroesophageal reflux disease 09-02-2018 Chronic Fracture of upper limb (10 sources) Fracture of radius; Translations: [Closed fracture distal radius, intra-articular, -punch] 07-06-2021 Episodic Gastritis and duodenitis (11 sources) Acute hemorrhagic gastritis 08-29-2020 Episodic Hyperplasia of prostate (20 sources) Benign prostatic hyperplasia; Translations: [Benign prostatic hypertrophy with outflow obstruction] 09-02-2018 Chronic Inflammatory conditions of male genital organs (11 sources) Orchitis and epididymitis 08-29-2020 Episodic Noninfectious gastroenteritis (11 sources) Chronic diarrhea of unknown origin 02-02-2021 Episodic Nonspecific chest pain (11 sources) Atypical chest pain 08-29-2020 Episodic Past or Other Problems Problem Classification Problem Date Documented Da te Episodic/Chronic Fracture of lower limb (3 sources) Fracture of femur Onset: 05-13-2014 07-11-2022 Episodic Genitourinary symptoms and ill-defined conditions (2 sources) Painful micturition, unspecified; Translations: [Painful micturition, unspecified] Onset: 07-11-2022 Episodic Results Test Name Value Interpretation Reference Range Facil ity Vital Signs Date Time Vital Sign Value Performing Clinician Mika jose 12-10-2021 09:17-0400 Body temperature 97.16 [degF] CHRISTIE PHELPS MD [facility] 12-10-2021 09:17-0400 Diastolic blood pressure 71 mm[Hg] CHRISTIE PHELPS MD [facility] 12-10-2021 09:17-0400 Heart rate 90 /min CHRISTIE PHELPS MD [facility] 12-10-2021 09:17-0400 Respiratory rate 18 /min CHRISTIE PHELPS MD [facility] 12-10-2021 09:17-0400 Systolic blood pressure 112 mm[Hg] CHRISTIE PHELPS MD [facility] Encounters Encounter Date Encounter Type Care Provider Facility Start: 10-17-2022 End: 10-18-2022 ambulatory LAURA CARDONA APRN-BEESWAX BLEACHER Facility:B Start: 10-17-2022 End: 10-17-2022 Patient encounter procedure LAURA CARDONA SILK [employer] HAT B[employer] MAKER-BEESWAX BLEACHER [facility] Start: 08-29-2022 End: 08-30-2022 ambulatory STERLING WINTERS SILK TOP HAT BODY MAKER-BEESWAX BLEACHER Facility:B Start: 08-29-2022 End: 08-29-2022 Patient encounter procedure STERLING WINTERS SILK [employer] HAT [employer]ODY MAKER-BEESWAX BLEACHER [facility] Start: 08-29-2022 End: 08-29-2022 Well adult monitoring check done STERLING WINTERS SILK [employer] HAT BODY MAKER-BEESWAX BLEACHER [facility] Start: 07-11-2022 End: 07-16-2022 ambulatory STERLING WINTERS SILK [employer] HAT BODY MAKER-BEESWAX BLEACHER Facility:B Start: 07-11-2022 End: 07-15-2022 Outreach Lab [place] WINTERS SILK [employer] HAT B[employer] MAKER-BEESWAX BLEACHER [facility] Start: 07-06-2022 End: 07-07-2022 ambulatory STERLING WINTERS SILK [employer] HAT BODY MAKER-BEESWAX BLEACHER Facility:B Start: 07-06-2022 End: 07-06-2022 Patient encounter procedure STERLING WINTERS SILK [employer] HAT BODY MAKER-BEESWAX BLEACHER [facility] Start: 04-18-2022 End: 04-19-2022 ambulatory LAURA A BRENDAN SILK TOP HAT BODY MAKER-BEESWAX BLEACHER Facility:B Start: 04-18-2022 End: 04-18-2022 Patient encounter procedure LAURA Debi BRENDAN SILK TOP HAT BODY MAKER-BEESWAX BLEACHER [facility] Start: 02-14-2022 End: 02-15-2022 ambulatory LAURA Debi BRENDAN SILK [employer] HAT B[employer] MAKER-BEESWAX BLEACHER Facility:B Start: 02-14-2022 End: 02-14-2022 Patient encounter procedure LAURA A BRENDAN SILK TOP HAT BODY MAKER-BEESWAX BLEACHER [facility] Start: 01-09-2022 End: 01-10-2022 ambulatory LILIAN PRICE MD. Facility:B Start: 01-03-2022 End: 03-09-2022 ambulatory JEROD HARDY PA-C Facility:[facility] Start: 12-10-2021 End: 12-10-2021 Emergency department patient visit CHRISTIE PHELPS MD Facility:B Start: 12-10-2021 End: 12-10-2021 Emergency department patient visit CHRISTIE PHELPS MD [facility] Start: 09-13-2021 End: 10-11-2021 Physical therapy management JEROD HARDY PA-C [facility] Start: 07-13-2021 End: 07-13-2021 Patient encounter procedure IVANNA Bennett ALESHA DO [facility] Start: 07-01-2021 End: 07-01-2021 Patient encounter procedure IVANNA Bennett ALESHA DO [facility] Start: 03-24-2021 End: 03-24-2021 Patient encounter procedure IVANNA Bennett ALESHA DO [facility] Procedures Date Procedure Procedure Detail Performing Clinician Start: 02-06-2021 Colonoscopy IVANNA HUNTER DO Start: 07-06-2020 Cardiac catheterization IVANNA EDUARDO DO Immunizations Immunization Date Immunization Notes Care Provider [facility] 01-19-2022 influenza virus vaccine, unspecified formulation [place] SAUND[facility] 04-27-2021 SARS-CoV-2 (COVID-19 ) Ad26 vaccine, recombinant IVANNA EDUARDO DO [facility] 02-09-2021 influenza virus vaccine, unspecified formulation IVANNA EDUARDO DO [facility] 07-21-2020 SARS-CoV-2 (COVID-19 ) Ad26 vaccine, recombinant IVANNA EDUARDO DO [facility] Payers Date Payer Category Payer Unknown [id number] 1945 Unknown [id number] 2.16.8 [id number] 1945 Unknown [id number] 2.16.8 [id number] 1945 Unknown [id number] 2.16.8 [id number] 1944 Unknown [id number] 2.16.8 [id number] 1944 Unknown [id number] 2.16.8 [id number] 1944 Unknown [id number] 2.16.8 [id number] 1944 Unknown [id number] 2.16.8 [id number] 1944 Unknown [id number] 2.16.8 [id number] 1945 Unknown [id number] 2.16.8 [id number] Social History Date Type Detail Facility Start: 07-07-2020 End: 06-08-2022 Ex-smoker (finding) [facility] Medical Equipment Procedure Code Equipment Code Equipment Origin al Text Equipment Identifier Dates FDA Start: 05-13-2016 FDA Start: 05-13-2016 FDA Start: 05-13-2016 Unknown Unknown 05/13/16 Unknown Unknown FDA Start: 05-13-2016 Unknown Unknown 05/13/16 Unknown Unknown FDA Start: 05-13-2016 Unknown Unknown 05/13/16 Unknown Unknown FDA Start: 05-13-2016 Unknown Unknown 05/13/16 Unknown Unknown FDA Start: 05-13-2016 Unknown Unknown 05/13/16 Unknown Unknown FDA Start: 05-13-2016 Unknown Unknown 05/13/16 Unknown Unknown FDA Start: 05-13-2016 Unknown Unknown 05/13/16 Unknown Unknown FDA Start: 05-13-2016 Unknown Unknown 05/13/16 Unknown Unknown FDA Start: 05-13-2016 Functional Status Date Assessment Result Facility 12-10-2021 Functional Status ID band on, Allergy Band on, Call device within reach, Bed in low position, Wheels locked, Upper/Half-Length side-rails up, Phone within reach, personal items within reach, Assistive devices within reach, Toileting device within reach, Bedside Cart Locked, Visitor at bedside, Safety level maintained [facility] Mental Status Date Assessment Result Facility 12-10-2021 Mental Status Oriented x 4 [facility] Clinical Notes 12-10-2021 to 07-13-2022 LaboratoryLaboratoryRadiologyLaboratoryRadiologyLaboratoryRadiologyLaboratoryRad iologyLaboratoryRadiologyLaboratoryRadiologyLaboratoryRadiologyLaboratoryRadiolo gyLaboratoryRadiologyLaboratoryRadiology Note Date & Type Note Facility 07-13-2022 Note . MICRO - Microbiology PROCEDURE: Urine Culture [*1] SOURCE: Urine, Clean Catch BODY SITE: COLLECTED DATE/TIME: 07/11/2022 15:07 EST RECEIVED DATE/TIME: 07/11/2022 20:09 EST START DATE/TIME: 07/11/2022 20:10 EST FREE TEXT SOURCE: AMENDED REPORTS Amended Report [] Verified Date/Time/Personnel: 07/13/2022 08:19 EST CORRECTED REPORT >100,000 cfu/ml Aerococcus urinae Sensitivity testing is not recommended for one of the following reasons: 1. Established susceptibility patterns are available or 2. Interpretative criteria are not available. Previously reported as: >100,000 cfu/ml Aerococcus urinaehominis FINAL REPORTS Final Report [] Verified Date/Time/Personnel: 07/13/2022 08:13 EST >100,000 cfu/ml Aerococcus urinaehominis Sensitivity testing is not recommended for one of the following reasons: 1. Established susceptibility patterns are available or 2. Interpretative criteria are not available. PRELIMINARY REPORTS Preliminary Report [] Verified Date/Time/Personnel: 07/12/2022 09:14 EST Culture results pending. Performing Locations *1: This test was performed at: [facility], [address] [place] [address], [id number] , [facility] ([place]) 07-06-2022 Note ORIGINAL HISTORY: Hernia, history of inguinal hernia repair. COMPARISON: 24 March 2021 FINDINGS: There are a few inguinal lymph nodes, up to about 13 mm in long axis. No hernias identified. IMPRESSION: No hernia is identified. Interpreted by: Timothy Florez MD Preliminary Report By: Timothy Florez MD Electronically signed By Timothy Florez MD Dictated Date: 07/06/2022 3:24:37 PM Prelim Date: 07/06/2022 3:25:32 PM Sign Date: 07/06/2022 3:25:32 PM Ordering Provider: [facility] 07-06-2022 Note ORIGINAL HISTORY: History of bilateral inguinal hernia. COMPARISON: 24 March 2021 FINDINGS: The right and left testicles measure 3.9 and 4.3 cm in maximum diameter, respectively. There is normal in symmetric blood flow to the kidneys. There are small hydroceles, septated on the left. There are bilateral epididymal cyst or spermatoceles, the largest being a 13 mm right-sided lesion. IMPRESSION: Small bilateral hydroceles, septated on the left. These were seen on the comparison as well. Bilateral epididymal cysts/spermatoceles. This is also new since the comparison. This finding was also seen on the comparison. No hernia is seen. Interpreted by: Timothy Florez MD Preliminary Report By: Timothy Florez MD Electronically signed By Timothy Florez MD Dictated Date: 07/06/2022 3:16:59 PM Prelim Date: 07/06/2022 3:24:22 PM Sign Date: 07/06/2022 3:24:22 PM Ordering Provider: [facility] 07-06-2022 Note ORIGINAL HISTORY: Hernia, history of inguinal hernia repair. COMPARISON: 24 March 2021 FINDINGS: There are a few inguinal lymph nodes, up to about 13 mm in long axis. No hernias identified. IMPRESSION: No hernia is identified. Interpreted by: Timothy Florez MD Preliminary Report By: Timothy Florez MD Electronically signed By Timothy Florez MD Dictated Date: 07/06/2022 3:24:37 PM Prelim Date: 07/06/2022 3:25:32 PM Sign Date: 07/06/2022 3:25:32 PM Ordering Provider: [facility] 07-06-2022 Note ORIGINAL HISTORY: History of bilateral inguinal hernia. COMPARISON: 24 March 2021 FINDINGS: The right and left testicles measure 3.9 and 4.3 cm in maximum diameter, respectively. There is normal in symmetric blood flow to the kidneys. There are small hydroceles, septated on the left. There are bilateral epididymal cyst or spermatoceles, the largest being a 13 mm right-sided lesion. IMPRESSION: Small bilateral hydroceles, septated on the left. These were seen on the comparison as well. Bilateral epididymal cysts/spermatoceles. This is also new since the comparison. This finding was also seen on the comparison. No hernia is seen. Interpreted by: Timothy Florez MD Preliminary Report By: Timothy Florez MD Electronically signed By Timothy Florez MD Dictated Date: 07/06/2022 3:16:59 PM Prelim Date: 07/06/2022 3:24:22 PM Sign Date: 07/06/2022 3:24:22 PM Ordering Provider: [facility] 12-10-2021 Hospital Discharge instructions Patient Education 12/10/2021 09:24:01 Dental Abscess Dental Abscess An abscess is a pocket of pus at the tip of a tooth root in your jaw bone. It is caused by an infection at the root of the tooth. It can cause pain and swelling of the gum, cheek, or jaw. Pain may spread from the tooth to your ear or the area of your jaw on the same side. If the abscess isn t treated, it appears as a bubble or swelling on the gum near the tooth. The pressure that builds in this swelling is the source of the pain. More serious infections cause your face to swell. An abscess can be caused by a crack in the tooth, a cavity, a gum infection, or a combination of these. Once the pulp of the tooth is exposed, bacteria can spread down the roots to the tip. If the bacteria are not stopped, they can damage the bone and soft tissue, and an abscess can form. Home care Follow these guidelines when caring for yourself at home: Don't have hot and cold foods and drinks. Your tooth may be sensitive to changes in temperature. Don t chew on the side of the infected tooth. If your tooth is chipped or cracked, or if there is a large open cavity, put oil of cloves directly on the tooth to relieve pain. You can buy oil of cloves at drugstores. Some pharmacies carry an bpsy-zjf-kgnnkap toothache kit. This contains a paste that you can put on the exposed tooth to make it less sensitive. Put a cold pack on your jaw over the sore area to help reduce pain. You may use tomb-spu-ifzowos medicine to ease pain, unless another medicine was prescribed. If you have chronic liver or kidney disease, talk with your healthcare provider before using acetaminophen or ibuprofen. Also talk with your provider if you ve had a stomach ulcer or GI bleeding. An antibiotic will be prescribed. Take it until finished, even if you are feeling better after a few days. Follow-up care Follow up with your dentist or an oral surgeon, or as advised. Once an infection occurs in a tooth, it will continue to be a problem until the infection is drained. This is done through surgery or a root canal. Or you may need to have your tooth pulled. Call 911 Call 911 if any of these occur: Unusual drowsiness Headache or stiff neck Weakness or fainting Difficulty swallowing, breathing, or opening your mouth Swollen eyelids When to seek medical advice Call your healthcare provider right away if any of these occur: Your face becomes more swollen or red Pain gets worse or spreads to your neck Fever of 100.4 F (38.0 C) or higher, or as directed by your healthcare provider Pus drains from the tooth [id number] [employer] [address] [place] [address]. All rights reserved. This information is not intended as a substitute for professional medical care. Always follow your healthcare professional's instructions. Follow Up Care 12/10/2021 09:13:31 With:Your dentist Address: When:1-2 days [facility] 12-10-2021 Emergency department Discharge summary Discharge Instructions Thank you for allowing [facility] to assist you with your healthcare needs. The following is important discharge information regarding your hospital visit. Diagnosis from Today's Visit Dentalgia Pain in tooth What to Do Next Instructions from Your Care Team No qualifying data available. Post Acute Orders No qualifying data available. You Need to Schedule the Following Appointments Follow Up with Your dentist When Within 1-2 days Where: Allergies NSAIDS (upset stomache) aspirin (STOMACH UPSET) bacitracin (RASH) Medications Please ask your primary doctor or pharmacist before taking any other medication not listed, including over the counter drugs, herbal medications, vitamins and or supplements as they may interact with your home medications. What How Much When Why Instructions Last Dose New acetaminophen-hydrocodone (Clear 325- 5 mg oral tablet) 1 tab(s) by mouth Every 6 hours as needed for as needed for pain Dentalgia Duration: 2 Days Printed Prescription New clindamycin (clindamycin 150 mg oral capsule) 1 cap by mouth Every 6 hours Dentalgia Duration: 7 Days Printed Prescription Unchanged acetaminophen (acetaminophen 500 mg oral capsule) 2 cap by mouth Three (3) times a day as needed for for pain Unchanged ascorbic acid (Vitamin C 1000 mg oral tablet) 1 tab(s) by mouth Once a day Unchanged ascorbic acid/ chondroitin/ glucosa/ lui (Glucosamine Chondroitin oral capsule) 1 cap by mouth Once a day Unchanged aspirin (Vazalore) by mouth Unchanged bimatoprost ophthalmic (Lumigan 0.01% ophthalmic solution) Once a day (in the evening) Unchanged bismuth subsalicylate (Pepto-Bismol 262 mg oral tablet, chewable) 2 tab(s) Chewed Once a day help the diarrhea Unchanged cholecalciferol (Vitamin D3) 400 unit(s) by mouth Every day Unchanged cyanocobalamin (Vitamin B12 1000 mcg oral tablet) 1 tab(s) by mouth Once a day Unchanged dutasteride (dutasteride 0.5 mg oral capsule) 1 cap by mouth Every day Unchanged glucosamine by mouth Unchanged lactase (Lactaid) Unchanged Misc Medication Nirmavar Unchanged Misc Medication (neuriva) Unchanged multivitamin with minerals (PreserVision AREDS 2) See instructions 2 capsules daily Unchanged mupirocin topical (mupirocin 2% topical ointment) 1 application Topical Three (3) times a day Duration: 10 Days Unchanged omeprazole by mouth Once a day Unchanged omeprazole (omeprazole 40 mg oral delayed release capsule) 1 cap by mouth Once a day Duration: 30 Days Unchanged potassium chloride (potassium chloride 99 mg oral tablet) 1 tab(s) by mouth Once a day Take with food Unchanged simvastatin (simvastatin 20 mg oral tablet) 1 tab(s) by mouth Daily at bedtime Unchanged tamsulosin (tamsulosin 0.4 mg oral capsule) 1 cap by mouth Once a day Please take this list to your next doctor s visit. Bring all medications you take, including over the counter medications, herbals and other supplements with you to your doctor s visit. Patients and families are reminded to discard old lists and to update any records with all medication providers or retail pharmacies. Medication Leaflets acetaminophen and hydrocodone (a SEET a MIN oh fen and isael CROWE done) Hycet, Lorcet, Clear, Verdrocet, Vicodin, Xodol, Zamicet What is the most important information I should know about acetaminophen and hydrocodone? MISUSE OF OPIOID MEDICINE CAN CAUSE ADDICTION, OVERDOSE, OR . Keep the medication in a place where others cannot get to it. Taking opioid medicine during may cause life-threatening withdrawal symptoms in the . Fatal side effects can occur if you use opioid medicine with alcohol, or with other drugs that cause drowsiness or slow your breathing. Stop taking this medicine and call your doctor right away if you have skin redness or a rash that spreads and causes blistering and peeling. What is acetaminophen and hydrocodone? Acetaminophen and hydrocodone is a combination medicine used to relieve moderate to severe pain. Acetaminophen and hydrocodone contains an opioid medicine, and may be habit-forming. Acetaminophen and hydrocodone may also be used for purposes not listed in this medication guide. What should I discuss with my healthcare provider before taking acetaminophen and hydrocodone? You should not use this medicine if you are allergic to acetaminophen or hydrocodone, or if you have: severe asthma or breathing problems; or a blockage in your stomach or intestines. Tell your doctor if you have ever had: breathing problems, sleep apnea (breathing stops during sleep); liver disease; a drug or alcohol addiction; kidney disease; a head injury or seizures; urination problems; or problems with your thyroid, pancreas, or gallbladder. If you use opioid medicine while you are , your baby could become dependent on the drug. This can cause life-threatening withdrawal symptoms in the baby after it is born. Babies born dependent on opioids may need medical treatment for several weeks. Ask a doctor before using opioid medicine if you are . Tell your doctor if you notice severe drowsiness or slow breathing in the nursing baby. How should I take acetaminophen and hydrocodone? Follow all directions on your prescription label. Never take this medicine in larger amounts, or for longer than prescribed. An overdose can damage your liver or cause . Tell your doctor if you feel an increased urge to use more of this medicine. Never share this medicine with another person, especially someone with a history of drug abuse or addiction. MISUSE CAN CAUSE ADDICTION, OVERDOSE, OR . Keep the medicine in a place where others cannot get to it. Selling or giving away this medicine is against the law. Measure liquid medicine carefully. Use the dosing syringe provided, or use a medicine dose-measuring device (not a kitchen spoon). If you need surgery or medical tests, tell the doctor ahead of time that you are using this medicine. You should not stop using this medicine suddenly. Follow your doctor's instructions about tapering your dose. Store at room temperature away from moisture and heat. Keep track of your medicine. You should be aware if anyone is using it improperly or without a prescription. Do not keep leftover opioid medication. Just one dose can cause in someone using this medicine accidentally or improperly. Ask your pharmacist where to locate a drug take-back disposal program. If there is no take-back program, flush the unused medicine down the toilet. What happens if I miss a dose? Since this medicine is used for pain, you are not likely to miss a dose. Skip any missed dose if it is almost time for your next dose. Do not use two doses at one time. What happens if I overdose? Seek emergency medical attention or call the Poison Help line at . An overdose of this medicine can be fatal, especially in a child or other person using the medicine without a prescription. Overdose symptoms may include nausea, vomiting, sweating, severe drowsiness, pinpoint pupils, slow breathing, or no breathing. Your doctor may recommend you get naloxone (a medicine to reverse an opioid overdose) and keep it with you at all times. A person caring for you can give the naloxone if you stop breathing or don't wake up. Your caregiver must still get emergency medical help and may need to perform CPR (cardiopulmonary resuscitation) on you while waiting for help to arrive. Anyone can buy naloxone from a pharmacy or local health department. Make sure any person caring for you knows where you keep naloxone and how to use it. What should I avoid while taking acetaminophen and hydrocodone? Avoid driving or operating machinery until you know how this medicine will affect you. Dizziness or drowsiness can cause falls, accidents, or severe injuries. Do not drink alcohol. Dangerous side effects or could occur. Ask a doctor or pharmacist before using any other medicine that may contain acetaminophen (sometimes abbreviated as APAP). Taking certain medications together can lead to a fatal overdose. What are the possible side effects of acetaminophen and hydrocodone? Get emergency medical help if you have signs of an allergic reaction: hives; difficulty breathing; swelling of your face, lips, tongue, or throat. Opioid medicine can slow or stop your breathing, and may occur. A person caring for you should give naloxone and/or seek emergency medical attention if you have slow breathing with long pauses, blue colored lips, or if you are hard to wake up. In rare cases, acetaminophen may cause a severe skin reaction that can be fatal. This could occur even if you have taken acetaminophen in the past and had no reaction. Stop taking this medicine and call your doctor right away if you have skin redness or a rash that spreads and causes blistering and peeling. Call your doctor at once if you have: noisy breathing, sighing, shallow breathing, breathing that stops; a light-headed feeling, like you might pass out; liver problems--nausea, upper stomach pain, tiredness, loss of appetite, dark urine, jason-colored stools, jaundice (yellowing of the skin or eyes); low cortisol levels-- nausea, vomiting, loss of appetite, dizziness, worsening tiredness or weakness; o high levels of serotonin in the body--agitation, hallucinations, fever, sweating, shivering, fast heart rate, muscle stiffness, twitching, loss of coordination, nausea, vomiting, diarrhea. Serious breathing problems may be more likely in older adults and in those who are debilitated or have wasting syndrome or chronic breathing disorders. Common side effects include: dizziness, drowsiness, feeling tired; nausea, vomiting, stomach pain; constipation; or headache. This is not a complete list of side effects and others may occur. Call your doctor for medical advice about side effects. You may report side effects to FDA at 3-258-LQZ-0126. What other drugs will affect acetaminophen and hydrocodone? You may have breathing problems or withdrawal symptoms if you start or stop taking certain other medicines. Tell your doctor if you also use an antibiotic, antifungal medication, heart or blood pressure medication, seizure medication, or medicine to treat HIV or hepatitis C. Opioid medication can interact with many other drugs and cause dangerous side effects or . Be sure your doctor knows if you also use: cold or allergy medicines, bronchodilator asthma/COPD medication, or a diuretic ('water pill'); medicines for motion sickness, irritable bowel syndrome, or overactive bladder; other opioids--opioid pain medicine or prescription cough medicine; a sedative like Valium--diazepam, alprazolam, lorazepam, Xanax, Klonopin, Versed, and others; drugs that make you sleepy or slow your breathing--a sleeping pill, muscle relaxer, medicine to treat mood disorders or mental illness; drugs that affect serotonin levels in your body--a stimulant, or medicine for depression, Parkinson's disease, migraine headaches, serious infections, or nausea and vomiting. This list is not complete. Other drugs may affect acetaminophen and hydrocodone, including prescription and rgzf-rsf-oobgoxf medicines, vitamins, and herbal products. Not all possible interactions are listed here. Where can I get more information? Your doctor or pharmacist can provide more information about acetaminophen and hydrocodone. Remember, keep this and all other medicines out of the reach of children, never share your medicines with others, and use this medication only for the indication prescribed. Every effort has been made to ensure that the information provided by [employer]. [employer]') is accurate, up-to-date, and complete, but no guarantee is made to that effect. Drug information contained herein may be time sensitive. [employer] information has been compiled for use by healthcare practitioners and consumers in the [place] and therefore [employer] does not warrant that uses outside of the [place] are appropriate, unless specifically indicated otherwise. [employer] drug information does not endorse drugs, diagnose patients or recommend therapy. [employer] drug information is an informational resource designed to assist licensed healthcare practitioners in caring for their patients and/or to serve consumers viewing this service as a supplement to, and not a substitute for, the expertise, skill, knowledge and judgment of healthcare practitioners. The absence of a warning for a given drug or drug combination in no way should be construed to indicate that the drug or drug combination is safe, effective or appropriate for any given patient. [facility] does not assume any responsibility for any aspect of healthcare administered with the aid of information [facility] provides. The information contained herein is not intended to cover all possible uses, directions, precautions, warnings, drug interactions, allergic reactions, or adverse effects. If you have questions about the drugs you are taking, check with your doctor, nurse or pharmacist. Copyright 1570-5341 [facility] [employer]. Version: 16.03. Revision Date: 06/14/2020. clindamycin (oral/injection) (kenzie berman ANURoxana bradley) Cleocin HCl, Cleocin Pediatric, Cleocin Phosphate What is the most important information I should know about clindamycin? Clindamycin can cause diarrhea, which may be severe or lead to serious, life-threatening intestinal problems. If you have diarrhea that is watery or bloody, stop using clindamycin and call your doctor. What is clindamycin? Clindamycin is an antibiotic that is used to treat serious infections caused by bacteria. Clindamycin may also be used for purposes not listed in this medication guide. What should I discuss with my healthcare provider before using clindamycin? You should not use this medicine if you are allergic to clindamycin or lincomycin. Tell your doctor if you have ever had: colitis, Crohn's disease, or other intestinal disorder; eczema, or allergic skin reaction; asthma or a severe allergic reaction to aspirin; liver disease; or an allergy to yellow food dye. It is not known whether this medicine will harm an unborn baby. Tell your doctor if you are or plan to become . Clindamycin can pass into breast milk and may cause side effects in the nursing baby. If you are while taking this medicine, call your doctor if your baby has diaper rash, redness or white patches in the mouth or throat, stomach discomfort, or diarrhea that is watery or bloody. Clindamycin injection may contain an ingredient that can cause serious side effects or in very young or premature babies. Do not give this medicine to a child without medical advice. How should I use clindamycin? Follow all directions on your prescription label and read all medication guides or instruction sheets. Use the medicine exactly as directed. Clindamycin oral is taken by mouth. Clindamycin injection is injected into a muscle, or as an infusion into a vein. A healthcare provider will give your first dose and may teach you how to properly use the medication by yourself. Take the capsule with a full glass of water to keep it from irritating your throat. Measure liquid medicine carefully. Use the dosing syringe provided, or use a medicine dose-measuring device (not a kitchen spoon). You may need frequent medical tests during treatment. If you need surgery, tell your surgeon you currently use clindamycin. Use this medicine for the full prescribed length of time, even if your symptoms quickly improve. Skipping doses can increase your risk of infection that is resistant to medication. Clindamycin will not treat a viral infection such as the flu or a common cold. Store at room temperature away from moisture and heat. Protect the injectable medicine from high heat. Do not store the oral liquid in the refrigerator. Throw away any unused oral liquid after 2 weeks. Use a needle and syringe only once and then place them in a puncture-proof 'sharps' container. Follow state or local laws about how to dispose of this container. Keep it out of the reach of children and pets. What happens if I miss a dose? Use the medicine as soon as you can, but skip the missed dose if it is almost time for your next dose. Do not use two doses at one time. What happens if I overdose? Seek emergency medical attention or call the Poison Help line at . What should I avoid while using clindamycin? Antibiotic medicines can cause diarrhea, which may be a sign of a new infection. If you have diarrhea that is watery or bloody, call your doctor. Do not use anti-diarrhea medicine unless your doctor tells you to. What are the possible side effects of clindamycin? Get emergency medical help if you have signs of an allergic reaction (hives, difficult breathing, swelling in your face or throat) or a severe skin reaction (fever, sore throat, burning in your eyes, skin pain, red or purple skin rash that spreads and causes blistering and peeling). Seek medical treatment if you have a serious drug reaction that can affect many parts of your body. Symptoms may include: skin rash, fever, swollen glands, flu-like symptoms, muscle aches, severe weakness, unusual bruising, or yellowing of your skin or eyes. Call your doctor at once if you have: any change in bowel habits; severe stomach pain, diarrhea that is watery or bloody; little or no urination; or a metallic taste in your mouth (after clindamycin injection). Common side effects may include: nausea, vomiting, stomach pain; mild skin rash; or vaginal itching or discharge; This is not a complete list of side effects and others may occur. Call your doctor for medical advice about side effects. You may report side effects to FDA at 2-523-MSL-6758. What other drugs will affect clindamycin? Sometimes it is not safe to use certain medications at the same time. Some drugs can affect your blood levels of other drugs you take, which may increase side effects or make the medications less effective. Other drugs may affect clindamycin, including prescription and bptj-vpn-uaymxse medicines, vitamins, and herbal products. Tell your doctor about all your current medicines and any medicine you start or stop using. Where can I get more information? Your pharmacist can provide more information about clindamycin. Remember, keep this and all other medicines out of the reach of children, never share your medicines with others, and use this medication only for the indication prescribed. Every effort has been made to ensure that the information provided by [employer]. [employer]') is accurate, up-to-date, and complete, but no guarantee is made to that effect. Drug information contained herein may be time sensitive. [employer] information has been compiled for use by healthcare practitioners and consumers in the [place] and therefore [employer] does not warrant that uses outside of the [place] are appropriate, unless specifically indicated otherwise. [employer] drug information does not endorse drugs, diagnose patients or recommend therapy. [employer] drug information is an informational resource designed to assist licensed healthcare practitioners in caring for their patients and/or to serve consumers viewing this service as a supplement to, and not a substitute for, the expertise, skill, knowledge and judgment of healthcare practitioners. The absence of a warning for a given drug or drug combination in no way should be construed to indicate that the drug or drug combination is safe, effective or appropriate for any given patient. [employer] does not assume any responsibility for any aspect of healthcare administered with the aid of information [employer] provides. The information contained herein is not intended to cover all possible uses, directions, precautions, warnings, drug interactions, allergic reactions, or adverse effects. If you have questions about the drugs you are taking, check with your doctor, nurse or pharmacist. Copyright 1235-0440 [employer]. Version: 12.. Revision Date: 11/04/2018. Education Materials Dental Abscess An abscess is a pocket of pus at the tip of a tooth root in your jaw bone. It is caused by an infection at the root of the tooth. It can cause pain and swelling of the gum, cheek, or jaw. Pain may spread from the tooth to your ear or the area of your jaw on the same side. If the abscess isn t treated, it appears as a bubble or swelling on the gum near the tooth. The pressure that builds in this swelling is the source of the pain. More serious infections cause your face to swell. An abscess can be caused by a crack in the tooth, a cavity, a gum infection, or a combination of these. Once the pulp of the tooth is exposed, bacteria can spread down the roots to the tip. If the bacteria are not stopped, they can damage the bone and soft tissue, and an abscess can form. Home care Follow these guidelines when caring for yourself at home: Don't have hot and cold foods and drinks. Your tooth may be sensitive to changes in temperature. Don t chew on the side of the infected tooth. If your tooth is chipped or cracked, or if there is a large open cavity, put oil of cloves directly on the tooth to relieve pain. You can buy oil of cloves at drugstores. Some pharmacies carry an rjhj-zta-jlbcllh toothache kit. This contains a paste that you can put on the exposed tooth to make it less sensitive. Put a cold pack on your jaw over the sore area to help reduce pain. You may use bqqv-jek-ztjtqkm medicine to ease pain, unless another medicine was prescribed. If you have chronic liver or kidney disease, talk with your healthcare provider before using acetaminophen or ibuprofen. Also talk with your provider if you ve had a stomach ulcer or GI bleeding. An antibiotic will be prescribed. Take it until finished, even if you are feeling better after a few days. Follow-up care Follow up with your dentist or an oral surgeon, or as advised. Once an infection occurs in a tooth, it will continue to be a problem until the infection is drained. This is done through surgery or a root canal. Or you may need to have your tooth pulled. Call 911 Call 911 if any of these occur: Unusual drowsiness Headache or stiff neck Weakness or fainting Difficulty swallowing, breathing, or opening your mouth Swollen eyelids When to seek medical advice Call your healthcare provider right away if any of these occur: Your face becomes more swollen or red Pain gets worse or spreads to your neck Fever of 100.4 F (38.0 C) or higher, or as directed by your healthcare provider Pus drains from the tooth [id number] [employer] [address] [place] [address]. All rights reserved. This information is not intended as a substitute for professional medical care. Always follow your healthcare professional's instructions. Additional Information VACCINATE! IT SAVES LIVES! Members of the community who have not yet received the COVID-19 vaccine and would like to receive it can visit one of [facility] vaccine clinics. There are many vaccine clinic locations within the [facility]. For locations and available times, please visit [email or web address]. It is important to note that some COVID mobile vaccine clinics are held outdoors and may be canceled in rainy or stormy conditions. To learn more about pediatric vaccinations (ages 5-11), we invite you to visit the [facility] webpage. [email or web address] To learn more about the COVID-19 vaccine, we invite you to visit the [facility] website for a list of frequently asked questions. [email or web address] [facility] Patient Portal Access Instructions: Stay connected with your healthcare team and access your personal medical information anytime with the [facility] Patient Portal. If you would like a full copy of your medical records please contact the [facility] Medical Records Department Saturday through Saturday between 8a.m. and 4:30p.m. Please follow the directions below to access the portal: 1.Access the email account you provided upon registration to the [facility].2.Look for an invitation email from [facility].3.Open the email and access the invitation link: Accept Invitation to [employer]4.Fill in the required huynh to create your account. Sign into [email or web address] with your username and password that you created in the above steps to stay up to date. You can then view a summary of results, a summary of your visits, and the ability to download your summaries to your computer or send the information securely to a physician. Remember that your healthcare information is confidential, so carefully consider who you will allow to register on the [employer] Patient Portal for access to your information. You can also access the [employer] Patient Portal on the [employer]. Simply click on Health Records under Health Data and then click on the [employer] logo. HOW TO SAFELY DISPOSE OF PRESCRIPTION MEDICATIONS Please use one of the following methods to safely dispose of your unused medications. 1.Use a drug disposal kit: the drug disposal pouch allows you to safely discard your old and unused drugs. Ask your nurse to give you one when you are discharged.2.Visit a local take-back location: Many local pharmacies and police departments have programs that collect old and unwanted prescription drugs. Call your local pharmacy or go to http://Localler.LAFASO/5W3Yq3h to find one close to you.3.Make use of household items: Use cat litter or old coffee grounds to dispose medications if other options are not available. Mix your drugs with these household products, seal them in an airtight container and throw it into the garbage. Call [facility]: [phone] to be sure your drugs can be disposed of in this way. Some medicines may require a different approach.4.Never flush your medications down the toilet. IF YOU HAVE BEEN PRESCRIBED AN OPIOIDS FOR PAIN If you have been prescribed an opioid (such as hydrocodone, oxycodone or morphine), it is critical to understand the possible side effects and risks of opioid pain medications. Even when taken as directed, opioids can have several side effects including: Tolerance, meaning you might need to take more of a medication for the same pain relief. Nausea, vomiting and/or constipation. Sleepiness, dizziness, dry mouth, confusion, depression or itching. Physical dependence, meaning you have withdrawal symptoms when a medication is stopped ? this can develop within a few days. KNOW YOUR RESPONSIBILITIES It is important to know exactly how much and how often to take the opioid pain medications you are prescribed. Never take opioids in higher amounts or more often than prescribed. Do not combine opioids with alcohol or other drugs that cause drowsiness, such as benzodiazepines, also known as benzos, including diazepam and alprazolam, muscle relaxants or sleep aids. Never sell or share prescription opioids. This is illegal. Store opioids in a secure place and out of reach of others (including children, family, friends and visitors). The last page(s) of this document has been signed and retained as a CHART COPY Signatures Patient Education Materials Dental Abscess Medication Leaflets acetaminophen and hydrocodone, clindamycin (oral/injection) My discharge plan and instructions have been reviewed and explained to me and I,SHAQUILLE LITTLEJOHN understand my current condition and have read and understand these discharge instructions. I have received a written copy of the plan/instructions. If I have questions, I am aware that I should contact my doctor. Patient/Delimer Signature: Date/Time: Relationship to Patient: Witness Name/Signature: Date/Time: [facility] Evaluation + Plan note Future Appointments Appointment Date:07/06/2021 09:00:00 AM Scheduled Provider:IVANNA EDUARDO DO Location:[facility] Appointment Type:PC OV Follow Up Future Scheduled TestsN-Terminal proBNP 08/08/21 [facility] Evaluation + Plan note Future Appointments Appointment Date:07/06/2021 09:00:00 AM Scheduled Provider:IVANNA EDUARDO DO Location:[facility] Appointment Type:PC OV Follow Up Appointment Date:08/11/2021 10:15:00 AM Scheduled Provider: Location:[facility] Appointment Type:CV OV Future Scheduled TestsN-Terminal proBNP 08/08/21XR Wrist Minimum 3 Views Left 07/01/21 [facility] Evaluation + Plan note Future Appointments Appointment Date:08/11/2021 10:15:00 AM Scheduled Provider: Location:[facility] Appointment Type:CV OV Appointment Date:09/07/2021 11:30:00 AM Scheduled Provider:IVANNA EDUARDO DO Location:[facility] Appointment Type:PC OV Follow Up Future Scheduled TestsN-Terminal proBNP 3/XR Wrist Minimum 3 Views Left 07/01/21 [facility] Evaluation + Plan note Future Appointments Appointment Date:11/30/2021 10:50:00 AM Scheduled Provider:MARCEL KENNEDY Location:[facility] Appointment Type:PC OV Future Scheduled TestsLipid Profile 02/10/22N-Terminal proBNP 02/10/22N-Terminal proBNP 08/08/21XR Wrist Minimum 3 Views Left 07/01/21 [facility] Evaluation + Plan note Future Appointments Appointment Date:05/28/2022 10:30:00 AM Scheduled Provider:MARCEL KENNEDY Location:[facility] Appointment Type:PC OV Future Scheduled TestsLipid Profile 02/10/22N-Terminal proBNP 02/10/22N-Terminal proBNP 08/08/21XR Wrist Minimum 3 Views Left 07/01/21 [facility] Evaluation + Plan note Future Appointments Appointment Date:04/18/2022 09:15:00 AM Scheduled Provider:LAURA CARDONA Location:[facility] PM Appointment Type:PM OV Appointment Date:05/28/2022 10:30:00 AM Scheduled Provider:MARCEL KENNEDY Location:[facility] Appointment Type:PC OV Future Scheduled TestsLipid Profile 10N-Terminal proBNP 10/06/03N-Terminal proBNP 08/08/21XR Femur Minimum 2 Views Right 12/20/21XR Hip Minimum 2 Views Right 12/20/21XR Knee 3 Views Right 12/20/21XR Wrist Minimum 3 Views Left 07/01/21 [facility] Evaluation + Plan note Future Appointments Appointment Date:05/28/2022 10:30:00 AM Scheduled Provider:MARCEL KENNEDY Location:[facility] Appointment Type:PC OV Appointment Date:10/17/2022 08:15:00 AM Scheduled Provider:LAURA CARDONA Location:[facility] PM Appointment Type:PM OV Future Scheduled TestsLipid Profile 02/10/22N-Terminal proBNP 02/10/22N-Terminal proBNP 08/08/21XR Femur Minimum 2 Views Right 12/20/21XR Hip Minimum 2 Views Right 12/20/21XR Knee 3 Views Right 12/20/21XR Wrist Minimum 3 Views Left 07/01/21 [facility] Evaluation + Plan note Future Appointments Appointment Date:07/11/2022 11:30:00 AM Scheduled Provider:STERLING WINTERS Location:[facility] Appointment Type:PC OV Appointment Date:07/26/2022 01:30:00 PM Scheduled Provider:STERLING WINTERS Location:[facility] Appointment Type:PC Wellness Annual Appointment Date:10/17/2022 08:15:00 AM Scheduled Provider:LAURA CARDONA Location:[facility] PM Appointment Type:PM OV Future Scheduled TestsLipid Profile 02/10/22N-Terminal proBNP 02/10/22N-Terminal proBNP 08/08/21XR Femur Minimum 2 Views Right 12/20/21XR Hip Minimum 2 Views Right 12/20/21XR Knee 3 Views Right 12/20/21 [facility] Evaluation + Plan note Future Appointments Appointment Date:07/26/2022 01:30:00 PM Scheduled Provider:STERLING WINTERS Location:[facility] Appointment Type: Wellness Annual Appointment Date:10/17/2022 08:15:00 AM Scheduled Provider:LAURA CARDONA Location:[facility] PM Appointment Type:PM OV Future Scheduled TestsLipid Profile 02/10/22N-Terminal proBNP 10/1/22N-Terminal proBNP 08/08/21XR Femur Minimum 2 Views Right 8XR Hip Minimum 2 Views Right 12/20/21XR Knee 3 Views Right 12/20/21 [facility] Evaluation + Plan note Future Appointments Appointment Date:10/17/2022 08:15:00 AM Scheduled Provider:LAURA CARDONA Location:[facility] PM Appointment Type:PM OV Appointment Date:01/24/2023 02:00:00 PM Scheduled Provider:STERLING WINTERS Location:[facility] Appointment Type:PC OV Follow Up Future Scheduled TestsLipid Profile 02/10/22N-Terminal proBNP 02/10/22N-Terminal proBNP 08/08/21XR Femur Minimum 2 Views Right 12/20/21XR Hip Minimum 2 Views Right 12/20/21XR Knee 3 Views Right 12/20/21 [facility] Evaluation + Plan note Future Appointments Appointment Date:12/12/2022 09:00:00 AM Scheduled Provider:LAURA CARDONA Location:[facility] PM Appointment Type:PM OV Appointment Date:01/24/2023 02:00:00 PM Scheduled Provider:STERLING WINTERS Location:[facility] Appointment Type:PC OV Follow Up Future Scheduled TestsLipid Profile 02/10/22N-Terminal proBNP 02/10/22XR Femur Minimum 2 Views Right 12/20/21XR Hip Minimum 2 Views Right 12/20/21XR Knee 3 Views Right 12/20/21 [facility] Hospital course Narrative No data available for this section [facility] Hospital Discharge instructions No data available for this section [facility] Progress note No data available for this section [facility] Summary Purpose Family History No Family History Records Found Advance Directives No Advanced Directives Records Found Additional Source Comments Care Team (unrecognized sect ion and content) Personnel Name: IVANNA EDUARDO DO Address: [address] [place] [address]- Name: Syeda Grady Clerk Sunni PT Care Team Personnel Name: STERLING WINTERS Position: P4 Advanced Track Helper Member Role: Primary Care Physician Address: Address: [address] [place] [address] Name: Syeda Grady Clerk Sunni PT Position: P3 Scheduling - Semiautomatic Stitcher Operator Advanced Member Role: Other Name: ALMAZ IRAHETA DO Member Role: Tung Nut Grower Address: Address: [address] [place] [address] Name: JOSE JUAN POLANCO MD Position: P4 Physician - Cardiology Member Role: Dot Compliance Coordinator Address: Address: [address] [place] [address]- Name: AYO JONES BEESWAX BLEACHER Member Role: Tung Nut Grower Address: Address: [address] [place] [address]- Care Team Related Persons Name: TO HALL Name: ANIRUDH DAMON Care Team Personnel Name: STERLING WINTERS Position: P4 Advanced Track Helper Member Role: Primary Care Physician Address: Address: [address] [place] [address] Name: Syeda Grady Clerk Sunni PT Position: P3 Scheduling - Semiautomatic Stitcher Operator Advanced Member Role: Other Name: ALMAZ IRAHETA DO Member Role: Tung Nut Grower Address: Address: [address] [place] [address] [place] [address]- Name: JOSE JUAN POLANCO MD Position: P4 Physician - Cardiology Member Role: Dot Compliance Coordinator Address: Address: [address] [place] [address]- Name: AYO JONES BEESWAX BLEACHER Member Role: Tung Nut Grower Address: Address: [address] [place] [address] Care Team Related Persons Name: TO HALL Name: ANIRUDH DAMON Care Team (unrecognized sect ion and content) Care Team Personnel Name: Syeda Grady Clerk Sunni PT Position: P3 Scheduling - Semiautomatic Stitcher Operator Advanced Member Role: Other Name: MARCEL KENNEDY Position: P4 Advanced Practice Nurse Med Service: Active Provider Member Role: Primary Care Physician Address: Address: [address] [place] [address]- Care Team Related Persons Name: ANIRUDH DAMON Care Team Personnel Name: Syeda Gradyrk Sunni PT Position: P3 Scheduling - Semiautomatic Stitcher Operator Advanced Member Role: Other Name: MARCEL KENNEDY Position: P4 Advanced Practice Nurse Med Service: Active Provider Member Role: Primary Care Physician Address: Address: [address] [place] [address]- Care Team Related Persons Name: TO HALL Name: ANIRUDH DAMON Care Team Personnel Name: Syeda Gradyrk Sunni PT Position: P3 Scheduling - Semiautomatic Stitcher Operator Advanced Member Role: Other Name: MARCEL KENNEDY Position: P4 Advanced Practice Nurse Member Role: Primary Care Physician Address: Address: [address] [place] [address]- Care Team Related Persons Name: TO HALL Name: ANIRUDH DAMON Care Team Personnel Name: STERLING WINTERS Position: P4 Advanced Track Helper Member Role: Primary Care Physician Address: Address: [address] [place] [address]- Name: Syeda Grady Clerk Sunni PT Position: P3 Scheduling - Semiautomatic Stitcher Operator Advanced Member Role: Other Name: ALMAZ IRAHETA DO Member Role: Tung Nut Grower Address: Address: [address] [facility] [place] [address]- [place] Name: JOSE JUAN POLANCO MD Position: P4 Physician - Cardiology Member Role: Dot Compliance Coordinator Address: Address: [address] [facility] [address] [facility] [place] [address]- [place] Name: AYO JONES BEESWAX BLEACHER Member Role: Tung Nut Grower Address: Address: [address] [facility] [address] [place], [place] [address] Care Team Related Persons Name: TO HALL Name: ANIRUDH DAMON Care Team Personnel Name: STERLING WINTERS APRN-BEESWAX BLEACHER Position: P4 Advanced Track Helper Member Role: Primary Care Physician Address: Address: [address] [facility] [place] [address]- Name: Syeda Grady Clerk Sunni PT Position: P3 Scheduling - Semiautomatic Stitcher Operator Advanced Member Role: Other Name: FRIENDALAMZ DO Member Role: Tung Nut Grower Address: Address: [address] [facility] [place] [address]- Name: JOSE JUAN POLANCO MD Position: P4 Physician - Cardiology Member Role: Dot Compliance Coordinator Address: Address: [address] [facility] [address] [facility] [place], [place] [address] Name: AYO JONES BEESWAX BLEACHER Member Role: Tung Nut Grower Address: Address: [address] [facility] [address] [place] [address]- [place] Care Team Related Persons Name: TO HALL Name: ANIRUDH DAMON (unrecognized sect ion and content) No Status Records Found INFORMATION SOURCE (unrecogn ized section and content) FOR RECORDS PERTAINING TO PATIENTS WHO ARE OR HAVE BEEN ENROLLED IN A CHEMICAL DEPENDENCY/SUBSTANCEABUSE PROGRAM, SOME INFORMATION MAY BE OMITTED. This clinical summary was aggregated from multiple sources. Caution should be exercised in using it in the provision of clinical care. This summary normalizes information from multiple sources, and as a consequence, information in this document may materially change the coding, format and clinical context of patient data. In addition, data may be omitted in some cases. CLINICAL DECISIONS SHOULD BE BASED ON THE PRIMARY CLINICAL RECORDS. [employer] provides no warranty or guarantee of the accuracy or completeness of information in this document.
[2023-06-10 15:10] LABS: Absolute Lymphocyte Count 1.64 X10^3/uL (0.83-4.51); Absolute Neutrophil Count 3.1 X10^3/uL (2.0-7.7); Basophil# 0.04 X10^3/uL; Basophil% 0.7 % (0-1); Eosinophil# 0.04 X10^3/uL; Eosinophils% 0.7 % (0-5); Erythrocyte Sedimentation Rate 4 mm/hr (0-20); Hematocrit 43.1 % (40-54); Hemoglobin 14.2 g/dL (13.0-16.5); Immature Platelet Fraction 5.5 % (1.0-7.9); Lymphocyte # 1.64 X10^3/ul (0.83-4.51); Lymphocyte % 30.6 % (19-41); Mean Corp Hgb Conc 32.9 g/dL (32-36); Mean Corpuscular Hgb 32.9 pg (27.0-32.0); Mean Platelet Vol. 10.9 fl (6.2-12.0); Monocyte% 9.3 % (0-10); NRBC Flagged by Analyzer 0 % (0-5); Neutrophil # 3.11 X10^3/uL (2.7-7.7); Neutrophil % 58.1 % (47-70); Platelet Count 127 K/mm3 (150-450); RBC Distribution Width CV 11.8 % (11.6-14.6); RBC Distribution Width SD 43.3 fl (35.1-43.9); RET-HE 37.4 pg (30-35); Red Blood Count 4.31 M/mm3 (4.6-6.2); Reticulocyte Count 1.58 % (0.5-1.5); White Blood Count 5.4 K/mm3 (4.4-11.0)
[2023-06-10 15:34] LABS: Vitamin B12 464 pg/mL (211-911)
[2023-06-10 15:43] LABS: ALB/GLOB Ratio 0.9 RATIO (0.9-2.4); AST(SGOT) 35 U/L (15-37); Alanine Aminotransfer ALT/SGPT 49 U/L (16-61); Albumin, Serum 3.6 g/dL (3.2-5.0); Alkaline Phosphatase 95 U/L (45-117); Anion Gap 4 (5-15); BUN 19 mg/dL (7-18); BUN/Creat Ratio 19.5 RATIO (10-20); CRP < 2.90 mg/L (0.0-3.0); Calcium,Total 8.9 mg/dL (8.5-10.1); Chloride 110 mmol/L (98-107); Creatinine, Serum 0.98 mg/dL (0.70-1.30); EST Glomerular Filtration Rate 79 mL/min (>60); Est Glom Filt Rate - Afr Amer 95 mL/min (>60); Globulin 3.8 g/dL (2.2-4.2); Glucose 97 mg/dL (74-106); Iron 71 ug/dL (65-175); Iron Binding Capacity,Total 259 ug/dL (250-450); LDH 172 U/L (87-241); Potassium 4.2 mmol/L (3.5-5.1); Protein, Total 7.4 g/dL (6.4-8.2); Sodium Level 143 mmol/L (136-145); Thyroid Stim Hormone (TSH) 3.18 uIU/mL (0.358-3.74)
[2023-06-15 05:08] LABS: Beef <0.10 kU/L (Class 0); Chocolate <0.10 kU/L (Class 0); Codfish <0.10 kU/L (Class 0); Corn <0.10 kU/L (Class 0); Egg, Whole <0.10 kU/L (Class 0); Milk (Cow) <0.10 kU/L (Class 0); Mussels <0.10 kU/L (Class 0); Peanut <0.10 kU/L (Class 0); Pork <0.10 kU/L (Class 0); Salmon <0.10 kU/L (Class 0); Shrimp <0.10 kU/L (Class 0); Soybean <0.10 kU/L (Class 0); Tuna <0.10 kU/L (Class 0); Vitamin D 1,25-Dihydroxy 58.6 pg/mL (24.8-81.5); Wheat <0.10 kU/L (Class 0)
[2023-06-17 11:08] LABS: Albumin 3.9 g/dL (2.9-4.4); Alpha-1-Globulins 0.2 g/dL (0.0-0.4); Alpha-2-Globulins 0.7 g/dL (0.4-1.0); Cytoplasmic Ab (C-ANCA) <1:20 titer (Neg:<1:20); Endomysial Antibody IgA Negative (Negative); Gamma Globulin 1.3 g/dL (0.4-1.8); Immunoglobulin A 271 mg/dL (61-437); Immunoglobulin E 14 IU/mL (6-495); Immunoglobulin G 1303 mg/dL (603-1613); Immunoglobulin M 77 mg/dL (15-143); Perinuclear Ab (P-ANCA) <1:20 titer (Neg:<1:20); t-Transglutaminase IgA <2 U/mL (0-3)
== END | disposition home or self-care (01) ==
LOC: LAB 14:23
PROVIDERS: PCP Nurse Practitioner Family; Referring Provider Internal Medicine Gastroenterology; Visit Provider Internal Medicine Gastroenterology
DX: D62 Acute posthemorrhagic anemia (principal); K22.70 Barrett's esophagus without dysplasia; K21.9 Gastro-esophageal reflux disease without esophagitis; K59.00 Constipation, unspecified; R10.9 Unspecified abdominal pain
CPT/HCPCS: 36415; 80053; 82607; 82652; 82784; 82785; 83516; 83540; 83550; 83615; 84165; 84443; 85025; 85045; 85652; 86003; 86005; 86140; 86255; 86256; 86334

== ENCOUNTER → 2023-06-12 | Outpatient (CLI) | payer MEDICARE, SELFPAY ==
--- OUTSIDE RECORDS SUMMARY | 2023-06-12 11:15 | XMS RPT_ITS | CCD ---
Author Name Unknown Address [address] [place] [address] Organization [facility] Care Team Providers Care Repatcher Name Role Phone IVANNA EDUARDO DO Primary Care Physician [phone] Sunni Grady PT Unavailable Unavailable KENNEDY IMMUNOLOGY SPECIALIST-EMERGENCY MEDICAL TECHNICIAN BASIC, MARCEL Primary Care Physician [phone] VIANEY STOVER-VENU, SETRLING Primary Care Physician ([phone] VIANEY STOVER-VENU, STERLING Primary Care Physician ([phone]) VIANEY IMMUNOLOGY SPECIALIST-EMERGENCY MEDICAL TECHNICIAN BASIC, STERLING Attending Unavailabl e BALTES IMMUNOLOGY SPECIALIST-EMERGENCY MEDICAL TECHNICIAN BASIC, STERLING Primary Care Unavailabl e BALZOILA IMMUNOLOGY SPECIALIST-EMERGENCY MEDICAL TECHNICIAN BASIC, STERLING Attending Unavailabl e BALZOILA IMMUNOLOGY SPECIALIST-EMERGENCY MEDICAL TECHNICIAN BASIC, STERLING Primary Care Unavailabl e HAYLEY SEN, JEROD Bennett Attending Unavailable KENNEDY IMMUNOLOGY SPECIALIST-EMERGENCY MEDICAL TECHNICIAN BASIC, MARCEL Primary Care Unavaila lars HARDY PA-C, JEROD Bennett Referring Unavailable LENIN COBB, CHRISTIE Zamarripa Attending Unavailable KENNEDY IMMUNOLOGY SPECIALIST-EMERGENCY MEDICAL TECHNICIAN BASIC, MARCEL Primary Care Unavaila lars CARDONA IMMUNOLOGY SPECIALIST-EMERGENCY MEDICAL TECHNICIAN BASIC, LAURA Vázquez Attending Zeinab vailable BALZOILA IMMUNOLOGY SPECIALIST-EMERGENCY MEDICAL TECHNICIAN BASIC, STERLING Primary Care Unavailabl e BRENDAN SÁNCHEZN-EMERGENCY MEDICAL TECHNICIAN BASIC, LAURA Vázquez Attending Zeinab vailable KENNEDY IMMUNOLOGY SPECIALIST-EMERGENCY MEDICAL TECHNICIAN BASIC, MARCEL Primary Care Unavaila ble BRENDAN SÁNCHEZN-EMERGENCY MEDICAL TECHNICIAN BASIC, LAURA Vázquez Attending Zeinab vailable KENNEDY IMMUNOLOGY SPECIALIST-EMERGENCY MEDICAL TECHNICIAN BASIC, MARCEL Primary Care Unavaildebi PRICE MD., LILIAN Kurtz Attending Unavailable KENNEDY IMMUNOLOGY SPECIALIST-EMERGENCY MEDICAL TECHNICIAN BASIC, MARCEL Primary Care Unavaila ble BALZOILA IMMUNOLOGY SPECIALIST-EMERGENCY MEDICAL TECHNICIAN BASIC, STERLING Attending Unavailabl e BALTES IMMUNOLOGY SPECIALIST-EMERGENCY MEDICAL TECHNICIAN BASIC, STERLING Primary Care Unavailabl e Allergies Allergy Classification [...] every six hours as needed for pain Howell 325- 5 mg oral tablet Dose = 1 tab(s), Oral, q6h, PRN as needed for pain, # 10 tab(s), 0 Refill(s), Dentalgia, 92.3 Start Date: 12/10/21 Stop Date: 12/12/21 Status: Ordered aspirin 81 mg oral tablet (1 source) Platelet Aggregation Inhibitor, Nonsteroidal Anti-inflammatory Drug Start: 07-06-2021 End: 08-05-2021 [facility] Aspirin 81 mg oral tablet, (chewable) Dose [...] Start: 10-17-2022 End: 10-18-2022 ambulatory LAURA CARDONA APRN-EMERGENCY MEDICAL TECHNICIAN BASIC Facility:B Start: 10-17-2022 End: 10-17-2022 Patient encounter procedure LAURA CARDONA IMMUNOLOGY SPECIALIST-EMERGENCY MEDICAL TECHNICIAN BASIC [facility] Start: 08-29-2022 End: 08-30-2022 ambulatory STERLING WINTERS IMMUNOLOGY SPECIALIST-EMERGENCY MEDICAL TECHNICIAN BASIC Facility:B Start: 08-29-2022 End: 08-29-2022 Patient encounter procedure STERLING WINTERS IMMUNOLOGY SPECIALIST-EMERGENCY MEDICAL TECHNICIAN BASIC [facility] Start: 08-29-2022 End: 08-29-2022 Well adult monitoring check done STERLING WINTERS IMMUNOLOGY SPECIALIST-EMERGENCY MEDICAL TECHNICIAN BASIC [facility] Start: 07-11-2022 End: 07-16-2022 ambulatory STERLING WINTERS IMMUNOLOGY SPECIALIST-EMERGENCY MEDICAL TECHNICIAN BASIC Facility:B Start: 07-11-2022 End: 07-15-2022 Outreach Lab STERLING WINTERS IMMUNOLOGY SPECIALIST-EMERGENCY MEDICAL TECHNICIAN BASIC [facility] Start: 07-06-2022 End: 07-07-2022 ambulatory STERLING WINTERS IMMUNOLOGY SPECIALIST-EMERGENCY MEDICAL TECHNICIAN BASIC Facility:B Start: 07-06-2022 End: 07-06-2022 Patient encounter procedure STERLING WINTERS IMMUNOLOGY SPECIALIST-EMERGENCY MEDICAL TECHNICIAN BASIC [facility] Start: 04-18-2022 End: 04-19-2022 ambulatory LAURA A BRENDAN IMMUNOLOGY SPECIALIST-EMERGENCY MEDICAL TECHNICIAN BASIC Facility:[facility] Start: 04-18-2022 End: 04-18-2022 Patient encounter procedure LAURA Debi BRENDAN IMMUNOLOGY SPECIALIST-EMERGENCY MEDICAL TECHNICIAN BASIC [facility] Start: 02-14-2022 End: 02-15-2022 ambulatory LAURA Debi BRENDAN IMMUNOLOGY SPECIALIST-EMERGENCY MEDICAL TECHNICIAN BASIC Facility:[facility] Start: 02-14-2022 End: 02-14-2022 Patient encounter procedure LAURA A BRENDAN IMMUNOLOGY SPECIALIST-EMERGENCY MEDICAL TECHNICIAN BASIC [facility] Start: 01-09-2022 End: 01-10-2022 [...] Patient encounter procedure IVANNA Bennett ALESHA DO [facility] Start: 07-01-2021 End: 07-01-2021 Patient encounter procedure IVANNA Bennett ALESHA DO [facility] Start: 03-24-2021 End: 03-24-2021 Patient encounter procedure IVANNA Bennett ALESHA DO [facility] Procedures Date Procedure Procedure Detail Performing Clinician Start: 02-06-2021 Colonoscopy IVANNA HUNTER DO Start: 07-06-2020 Cardiac catheterization IVANNA EDUARDO DO Immunizations Immunization Date Immunization Notes Care Provider [facility] 01-19-2022 influenza virus vaccine, unspecified formulation STERLING SAUNDERS [facility] 04-27-2021 SARS-CoV-2 (COVID-19 ) Ad26 vaccine, recombinant IVANNA EDUARDO DO [facility] 02-09-2021 influenza virus vaccine, unspecified formulation IVANNA EDUARDO DO [facility] 07-21-2020 SARS-CoV-2 (COVID-19 ) Ad26 vaccine, recombinant IVANNA EDUARDO DO [facility] Payers Date Payer Category Payer Unknown [id number] 1945 Unknown [id number] 2.16.8 [id number] 1945 Unknown [id number] 2.16.8 [id number] 1945 Unknown [id number] 2.16.8 [id number] 1944 Unknown [id number] 2.16.8 [id number] 1944 Unknown [id number] 2.16.8 [id number] 1944 Unknown [id number] 2.16.8 [id number] 1944 Unknown [id number] 2.16.8 [id number] 1944 Unknown [id number] 2.16.8 [id number] 1944 Unknown [id number] 2.16.8 [id number] Social History Date Type Detail Facility Start: 07-07-2020 End: 06-08-2022 Ex-smoker (finding) [facility] Medical Equipment Procedure Code Equipment Code Equipment [...] Facility 12-10-2021 Mental Status Oriented x 4 [facility] Clinical Notes 12-10-2021 to 07-13-2022 LaboratoryLaboratoryRadiologyLaboratoryRadiologyLaboratoryRadiologyLaboratoryRad iologyLaboratoryRadiologyLaboratoryRadiologyLaboratoryRadiologyLaboratoryRadiolo [...] Locations *1: This test was performed at: [facility], [address] [place] [address], [id number] , [facility] 07-06-2022 Note ORIGINAL HISTORY: Hernia, history of [...] Sign Date: 07/06/2022 3:25:32 PM Ordering Provider: [facility] 07-06-2022 Note ORIGINAL HISTORY: History of bilateral [...] Sign Date: 07/06/2022 3:24:22 PM Ordering Provider: [facility] 07-06-2022 Note ORIGINAL HISTORY: Hernia, history of [...] Sign Date: 07/06/2022 3:25:32 PM Ordering Provider: [facility] 07-06-2022 Note ORIGINAL HISTORY: History of bilateral [...] Sign Date: 07/06/2022 3:24:22 PM Ordering Provider: [facility] 12-10-2021 Hospital Discharge instructions Patient Education 12/10/2021 [...] cloves at drugstores. Some pharmacies carry an ifsk-hsz-uvonmtq toothache kit. This contains a paste that you can put on the exposed tooth to make it less sensitive. Put a cold pack on your jaw over the sore area to help reduce pain. You may use lhvq-ctf-ngxogia medicine to ease pain, unless another medicine [...] healthcare provider Pus drains from the tooth [id number] [employer]. [address] [place] [address]. All rights reserved. This information is not intended as a substitute for professional medical care. Always follow your healthcare professional's instructions. Follow Up Care 12/10/2021 09:13:31 With:Your dentist Address: When:1-2 days [facility] 12-10-2021 Emergency department Discharge summary Discharge Instructions Thank you for allowing [facility] to assist you with your healthcare needs. [...] When Why Instructions Last Dose New acetaminophen-hydrocodone (Howell 325- 5 mg oral tablet) 1 tab(s) [...] fen and isael CROWE done) Hycet, Lorcet, Howell, Verdrocet, Vicodin, Xodol, Zamicet What is the [...] may report side effects to FDA at 6-786-ORW-7520. What other drugs will affect acetaminophen and [...] affect acetaminophen and hydrocodone, including prescription and eevf-hpv-esqoccx medicines, vitamins, and herbal products. Not all [...] to ensure that the information provided by [employer]. ('[employer]') is accurate, up-to-date, and complete, but no guarantee is made to that effect. Drug information contained herein may be time sensitive. [employer] information has been compiled for use by healthcare practitioners and consumers in the [place] and therefore [employer] does not warrant that uses outside of the [place] are appropriate, unless specifically indicated otherwise. [employer] drug information does not endorse drugs, diagnose patients or recommend therapy. [employer] drug information is an informational resource designed [...] effective or appropriate for any given patient. [facility] does not assume any responsibility for any aspect of healthcare administered with the aid of information [facility] provides. The information contained herein is not intended to cover all possible uses, directions, precautions, warnings, drug interactions, allergic reactions, or adverse effects. If you have questions about the drugs you are taking, check with your doctor, nurse or pharmacist. Copyright 9478-3786 [facility] [employer]. Version: 16.03. Revision Date: 06/14/2020. clindamycin (oral/injection) [...] may report side effects to FDA at 9-712-BEB-3626. What other drugs will affect clindamycin? Sometimes it is not safe to use certain medications at the same time. Some drugs can affect your blood levels of other drugs you take, which may increase side effects or make the medications less effective. Other drugs may affect clindamycin, including prescription and vkts-mty-neiaqje medicines, vitamins, and herbal products. Tell your [...] to ensure that the information provided by [employer]') is accurate, up-to-date, and complete, but no guarantee is made to that effect. Drug information contained herein may be time sensitive. [employer] information has been compiled for use by healthcare practitioners and consumers in the [place] and therefore [employer] does not warrant that uses outside of the [place] are appropriate, unless specifically indicated otherwise. [employer] drug information does not endorse drugs, diagnose patients or recommend therapy. [employer] drug information is an informational resource designed [...] effective or appropriate for any given patient. [employer] does not assume any responsibility for any aspect of healthcare administered with the aid of information [employer] provides. The information contained herein is not intended to cover all possible uses, directions, precautions, warnings, drug interactions, allergic reactions, or adverse effects. If you have questions about the drugs you are taking, check with your doctor, nurse or pharmacist. Copyright 7951-0309 [employer]. Version: 12.. Revision Date: 11/04/2018. Education Materials [...] cloves at drugstores. Some pharmacies carry an qxsl-wrd-tcadnxr toothache kit. This contains a paste that you can put on the exposed tooth to make it less sensitive. Put a cold pack on your jaw over the sore area to help reduce pain. You may use oxkt-ets-kbkgtim medicine to ease pain, unless another medicine [...] healthcare provider Pus drains from the tooth [phone] [employer]. [address] [place] [address]. All rights reserved. This information is not intended as a substitute for professional medical care. Always follow your healthcare professional's instructions. Additional Information VACCINATE! IT SAVES LIVES! Members of the community who have not yet received the COVID-19 vaccine and would like to receive it can visit one of [facility] vaccine clinics. There are many vaccine clinic locations within the [facility]. For locations and available times, please visit [email or web address]. org. It is important to note that some COVID mobile vaccine clinics are held outdoors and may be canceled in rainy or stormy conditions. To learn more about pediatric vaccinations (ages 5-11), we invite you to visit the [facility] webpage. [email or web address]://[email or web address] [email or web address]-Eguxv-Nvknehequgq-Freq tkpjni-Bvgrh-Ujzlzhsie.html To learn more about the COVID-19 vaccine, we invite you to visit the [facility] website for a list of frequently asked questions. [email or web address] [email or web address]-[email or web address]-[email or web address] requently_[email or web address]-Questions.pdf [facility] [employer] Patient Portal Access Instructions: Stay connected with your healthcare team and access your personal medical information anytime with the [facility] [employer] Patient Portal. If you would like a full copy of your medical records please contact the [facility] Medical Records Department Saturday through Saturday between 8a.m. and 4:30p.m. Please follow the directions below to access the portal: 1.Access the email account you provided upon registration to the [facility].2.Look for an invitation email from [facility].3.Open the email and access the invitation link: Accept Invitation to [facility].Fill in the required huynh to create your account. Sign into [email or web address] with your username and password that you [...] you will allow to register on the [facility] Patient Portal for access to your information. You can also access the [facility] Patient Portal on the paOnde. Simply click on Health Records under Health Data and then click on the [employer] logo. HOW TO SAFELY DISPOSE OF PRESCRIPTION [...] Call your local pharmacy or go to [email or web address] to find one close to you.3.Make use of household items: Use cat litter or old coffee grounds to dispose medications if other options are not available. Mix your drugs with these household products, seal them in an airtight container and throw it into the garbage. Call [facility]: [phone] to be sure your drugs can be [...] aware that I should contact my doctor. 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 Signature: Date/Time: Relationship to Patient: Witness Name/Signature: Date/Time: [facility] Evaluation + Plan note Future Appointments Appointment Date:07/06/2021 09:00:00 AM Scheduled Provider:IVANNA EDUARDO DO Location:[facility] Appointment Type:PC OV Follow Up Future Scheduled TestsN-Terminal proBNP 08/08/21 [facility] Evaluation + Plan note Future Appointments Appointment Date:07/06/2021 09:00:00 AM Scheduled Provider:IVANNA EDUARDO DO Location:[facility] Appointment Type:PC OV Follow Up Appointment Date:08/11/2021 10:15:00 AM Scheduled Provider: Location:[facility] Appointment Type:CV OV Future Scheduled TestsN-Terminal proBNP 08/08/21XR Wrist Minimum 3 Views Left 07/01/21 [facility] Evaluation + Plan note Future Appointments Appointment Date:08/11/2021 10:15:00 AM Scheduled Provider: Location:[facility] Appointment Type:CV OV Appointment Date:09/07/2021 11:30:00 AM Scheduled Provider:IVANNA EDUARDO DO Location:[facility] Appointment Type:PC OV Follow Up Future Scheduled TestsN-Terminal proBNP 3/XR Wrist Minimum 3 Views Left 07/01/21 [facility] Evaluation + Plan note Future Appointments Appointment Date:11/30/2021 10:50:00 AM Scheduled Provider:MARCEL KENNEDY Location:[facility] Appointment Type:PC OV Future Scheduled TestsLipid Profile 02/10/22N-Terminal proBNP 02/10/22N-Terminal proBNP 08/08/21XR Wrist Minimum 3 Views Left 07/01/21 [facility] Evaluation + Plan note Future Appointments Appointment Date:05/28/2022 10:30:00 AM Scheduled Provider:MARCLE KENNEDY Location:[facility] Appointment Type:PC OV Future Scheduled TestsLipid Profile 02/10/22N-Terminal proBNP 02/10/22N-Terminal proBNP 08/08/21XR Wrist Minimum 3 Views Left 07/01/21 [facility] Evaluation + Plan note Future Appointments Appointment Date:04/18/2022 09:15:00 AM Scheduled Provider:LAURA CARDONA Location:[facility] Appointment Type:PM OV Appointment Date:05/28/2022 10:30:00 AM Scheduled Provider:MARCEL KENNEDY Location:[facility] Appointment Type:PC OV Future Scheduled TestsLipid Profile 10N-Terminal proBNP 10/06/03N-Terminal proBNP 08/08/21XR Femur Minimum 2 Views Right 12/20/21XR Hip Minimum 2 Views Right 12/20/21XR Knee 3 Views Right 12/20/21XR Wrist Minimum 3 Views Left 07/01/21 [facility] Evaluation + Plan note Future Appointments Appointment Date:05/28/2022 10:30:00 AM Scheduled Provider:MARCEL KENNEDY Location:[facility] Appointment Type:PC OV Appointment Date:10/17/2022 08:15:00 AM Scheduled Provider:LAURA CARDONA Location:[facility] PM Appointment Type:PM OV Future Scheduled TestsLipid Profile 02/10/22N-Terminal proBNP 02/10/22N-Terminal proBNP 08/08/21XR Femur Minimum 2 Views Right 12/20/21XR Hip Minimum 2 Views Right 12/20/21XR Knee 3 Views Right 12/20/21XR Wrist Minimum 3 Views Left 07/01/21 [facility] Evaluation + Plan note Future Appointments Appointment Date:07/11/2022 11:30:00 AM Scheduled Provider:STERLING WINTERS Location:[facility] Appointment Type:PC OV Appointment Date:07/26/2022 01:30:00 PM Scheduled Provider:STERLING WINTERS Location:[facility] Appointment Type:PC Wellness Annual Appointment Date:10/17/2022 08:15:00 AM Scheduled Provider:LAURA CARDONA Location:[facility] PM Appointment Type:PM OV Future Scheduled TestsLipid Profile 02/10/22N-Terminal proBNP 02/10/22N-Terminal proBNP 08/08/21XR Femur Minimum 2 Views Right 12/20/21XR Hip Minimum 2 Views Right 12/20/21XR Knee 3 Views Right 12/20/21 [facility] Evaluation + Plan note Future Appointments Appointment Date:07/26/2022 01:30:00 PM Scheduled Provider:STERLING WINTERS Location:[facility] Appointment Type: Wellness Annual Appointment Date:10/17/2022 08:15:00 AM Scheduled Provider:LAURA CARDONA Location:[facility] PM Appointment Type:PM OV Future Scheduled TestsLipid Profile 02/10/22N-Terminal proBNP 10/1/22N-Terminal proBNP 08/08/21XR Femur Minimum 2 Views Right 8XR Hip Minimum 2 Views Right 12/20/21XR Knee 3 Views Right 12/20/21 [facility] Evaluation + Plan note Future Appointments Appointment Date:10/17/2022 08:15:00 AM Scheduled Provider:LAURA CARDONA Location:[facility] PM Appointment Type:PM OV Appointment Date:01/24/2023 02:00:00 PM Scheduled Provider:STERLING WINTERS Location:[facility] Appointment Type:PC OV Follow Up Future Scheduled TestsLipid Profile 02/10/22N-Terminal proBNP 02/10/22N-Terminal proBNP 08/08/21XR Femur Minimum 2 Views Right 12/20/21XR Hip Minimum 2 Views Right 12/20/21XR Knee 3 Views Right 12/20/21 [facility] Evaluation + Plan note Future Appointments Appointment Date:12/12/2022 09:00:00 AM Scheduled Provider:LAURA CARDONA Location:[facility] PM Appointment Type:PM OV Appointment Date:01/24/2023 02:00:00 PM Scheduled Provider:STERLING WINTERS Location:[facility] Appointment Type:PC OV Follow Up Future [...] content) Personnel Name: IVANNA EDUARDO DO Address: [address] [place] [address]- Name: Syeda Grady Clerk Sunni PT Care Team Personnel Name: STERLING WINTERS Position: P4 Advanced Yacht Master Member Role: Primary Care Physician Address: Address: [address] [place] [address] Name: Syeda Grady Clerk Sunni PT Position: P3 Scheduling - Gold Marker Advanced Member Role: Other Name: ALMAZ IRAHETA DO Member Role: Bed Control Specialist Address: Address: [address] [place] [address] Name: JOSE JUAN POLANCO MD Position: P4 Physician - Cardiology Member Role: Spray Worker Address: Address: [address] [place] [address]- Name: AYO JONES EMERGENCY MEDICAL TECHNICIAN BASIC Member Role: Bed Control Specialist Address: Address: [address] [place] [address]- Care Team Related Persons Name: TO HALL Name: ANIRUDH DAMON Care Team Personnel Name: STERLING WINTERS Position: P4 Advanced Yacht Master Member Role: Primary Care Physician Address: Address: [address] [place] [address] Name: Syeda Grady Clerk Sunni PT Position: P3 Scheduling - Gold Marker Advanced Member Role: Other Name: ALMAZ IRAHETA DO Member Role: Bed Control Specialist Address: Address: [address] [place] [address] [place] [address]- Name: JOSE JUAN POLANCO MD Position: P4 Physician - Cardiology Member Role: Spray Worker Address: Address: [address] [place] [address]- Name: AYO JONES EMERGENCY MEDICAL TECHNICIAN BASIC Member Role: Bed Control Specialist Address: Address: [address] [place] [address] Care Team Related Persons Name: TO HALL Name: ANIRUDH DAMON Care Team (unrecognized sect ion and content) Care Team Personnel Name: Syeda Grady Clerk Sunni PT Position: P3 Scheduling - Gold Marker Advanced Member Role: Other Name: MARCEL KENNEDY Position: P4 Advanced Practice Nurse Med Service: Active Provider Member Role: Primary Care Physician Address: Address: [address] [place] [address]- Care Team Related Persons Name: ANIRUDH DAMON Care Team Personnel Name: Syeda Gradyrk Sunni PT Position: P3 Scheduling - Gold Marker Advanced Member Role: Other Name: MARCEL KENNEDY Position: P4 Advanced Practice Nurse Med Service: Active Provider Member Role: Primary Care Physician Address: Address: [address] [place] [address]- Care Team Related Persons Name: TO HALL Name: ANIRUDH DAMON Care Team Personnel Name: Syeda Gradyrk Sunni PT Position: P3 Scheduling - Gold Marker Advanced Member Role: Other Name: MARCEL KENNEDY Position: P4 Advanced Practice Nurse Member Role: Primary Care Physician Address: Address: [address] [place] [address]- Care Team Related Persons Name: TO HALL Name: ANIRUDH DAMON Care Team Personnel Name: STERLING WINTERS Position: P4 Advanced Yacht Master Member Role: Primary Care Physician Address: Address: [address] [place] [address]- Name: Syeda Grady Clerk Sunni PT Position: P3 Scheduling - Gold Marker Advanced Member Role: Other Name: ALMAZ IRAHETA DO Member Role: Bed Control Specialist Address: Address: [address] [facility] [place] [address]- [place] Name: JOSE JUAN POLANCO MD Position: P4 Physician - Cardiology Member Role: Spray Worker Address: Address: [address] [facility] [address] [facility] [place] [address]- [place] Name: AYO JONES EMERGENCY MEDICAL TECHNICIAN BASIC Member Role: Bed Control Specialist Address: Address: [address] [facility] [address] [place], [place] [address] Care Team Related Persons Name: TO HALL Name: ANIRUDH DAMON Care Team Personnel Name: STERLING WINTERS APRN-EMERGENCY MEDICAL TECHNICIAN BASIC Position: P4 Advanced Yacht Master Member Role: Primary Care Physician Address: Address: [address] [facility] [place] [address]- Name: Syeda Grady Clerk Sunni PT Position: P3 Scheduling - Gold Marker Advanced Member Role: Other Name: FRIENDALMAZ DO Member Role: Bed Control Specialist Address: Address: [address] [facility] Gastroenterology [place] [address]- Name: JOSE JUAN POLANCO MD Position: P4 Physician - Cardiology Member Role: Spray Worker Address: Address: [address] [facility] [address] [facility] [place], [place] [address] Name: AYO JONES EMERGENCY MEDICAL TECHNICIAN BASIC Member Role: Bed Control Specialist Address: Address: [address] [facility] [address] [place] [address]- [place] Care Team Related Persons Name: TO [...] BE BASED ON THE PRIMARY CLINICAL RECORDS. [employer] provides no warranty or guarantee of the accuracy or completeness of information in this document.
[2023-06-18 12:09] LABS: Pancreatic Elastase, Fecal 129 (>200)
== END | disposition home or self-care (01) ==
PROVIDERS: Referring Provider Internal Medicine Gastroenterology; Visit Provider Internal Medicine Gastroenterology
DX: K58.9 Irritable bowel syndrome, unspecified (principal); K22.70 Barrett's esophagus without dysplasia; K21.9 Gastro-esophageal reflux disease without esophagitis; K59.00 Constipation, unspecified; R10.9 Unspecified abdominal pain; R19.7 Diarrhea, unspecified
CPT/HCPCS: 82653; 83630; 87177; 87209; 87329; 87506

== ENCOUNTER → 2023-06-18 | Outpatient (CLI) | payer MEDICARE, SELFPAY ==
[2023-06-18 13:31] LABS: PSA,Total- Diagnostic 0.61 ng/mL (0.0-4.0)
== END | disposition home or self-care (01) ==
LOC: LAB 11:14
PROVIDERS: PCP Nurse Practitioner Primary Care; Referring Provider Urology; Visit Provider Urology
DX: N40.1 Benign prostatic hyperplasia with lower urinary tract symptoms (principal)
CPT/HCPCS: 36415; 84153

== ENCOUNTER 2023-06-19 09:30 | Day surgery (SDC) | payer MEDICARE, SELFPAY ==
[2023-06-19 09:59] VITALS: BP 122/67; PULSE 82; RESP 16; TEMP 36.6; O2SAT 94; BMI 26.7
[2023-06-19] MEDS: Lactated Ringers 1,000 ML 15 ML IV (10:02)
--- NOTE | 2023-06-19 10:59 | HP.PCM_ITS ---
History and Physical Date of Admission: 06/19/23 78 M who presents to the office today for PMH includes anemia, GERD, COPD, unintentional weight loss, elevated LFT, benign neoplasm of large intestine, IBS-D, gastritis. Cholecystectomy early . Prior workup Colonoscopy Dr. Cardona 02.06. finding numerous diverticula throughout sigmoid area and transverse colon. Diverticulosis and mycosis throughout left colon; internal hemorrhoids. Biopsy results without pathological change. Negative for microscopic colitis. *BGI established 5.6.22 for evaluation of flatulence and lower abdominal pain with periodic nausea. BM fluctuate with several days of no BM and then a day of multiple BM. ? Biochemical Elevated CRP (1.1) and ESR (24). Vitamin D WNL. CMP WNL save elevated BUN 26. Lipids triglyceride elevated 180, HDL low 37. LFT WNL. ? KUB 5.6.22 gaseous distention of bowel loops with moderate stool, suspect ileus versus enteritis. ? EGD 8.. tortuous esophagus; LA Grade A reflux esophagitis with metaplasia Ki-67+, without dysplasia. Remaining exam WNL. OV 10.28.22 flatulence, Doxycycline. Constipation, Reglan. GERD, PPI and Carafate. OV 1.20.23 flatulence prunes, aloe vera, sodium bicarbonate, doxycycline. Contact 2.3.23 medications aren?t working. Recommend cessation of prune, aloe vera, sodium bicar, doxycycline and start Flagyl OV 1.29.24 reports flatulence of varying severity that is triggered particularly by milk/dairy. ROS Const Constitutional: Positive for headache(s) and weakness; No fatigue ENT ENT: Positive for headache(s); No difficulty swallowing Gastro GI: Positive for abdominal pain, bloating and excessive flatus; No belching, change in bowel habits, change in stool character, coffee ground emesis, constipation, cramping, diarrhea, heartburn, difficulty swallowing, feeling full early, incontinent of stools, Vomiting blood/hematemesis, Blood in stool, loose stools, Black,tarry stools, nausea/dyspepsia, pain with swallowing, vomiting or other Musc Musculoskeletal: Positive for back pain, muscle weakness, stiffness and leg pain at night; No joint pain Skin Skin: No yellowing of the eye or itchy eyes Neuro Neurology: Positive for weakness, headache(s) and Increased tone in limbs Psych Psychiatric: No anxiety and No depression Endo Endocrine: No fatigue Aller/Imm Allergy/Immunologic: No itchy eyes Joshua/Lymp Hematologic/Lymphatic: No easy bleeding or easy bruising Exam Const General: cooperative and comfortable Nutritional Appearance: average body habitus Orientation: alert, awake and oriented x3 GI Inspection: normal to inspection Palpation: soft, no hepatosplenomegaly, no masses and nontender Quality Reporting Tobacco Screening ([facility] 138) Smoking Status: Former smoker Assessment and Plan Assessment and Plan (1) Medley's esophagus: Status: Chronic Plan: Continue daily pantoprazole. Repeat EGD for surviallence as it has been 2 years.. (2) GERD (gastroesophageal reflux disease): Status: Chronic Plan: He is not having esophageal dysphagia at this time. We will refill his pantoprazole. He will have to stay on it for Medley's Esophagus (3) Constipation: Status: Chronic Plan: Try adding partial dose of miralax daily, can continue prune juice if needed. Will look for the intermittent RLQ pain to resolve, if not then needs further eval. F/u 6 mos (4) Abdominal pain: Status: Acute Plan: He likely has bile acid reflux. Possibly also elements of gastroparesis. We will get a Gastric emptying study Orders: Orders JAYDE + Protein Elect, Serum Today K21.9 - Gastro-esophageal reflux disease without esophagitis, K22.70 - Medley's esophagus without dysplasia, K59.00 - Constipation, unspecified, R10.9 - Unspecified abdominal pain Iron Binding Capacity,Total Today D62 - Acute posthemorrhagic anemia, K21.9 - Gastro-esophageal reflux disease without esophagitis, K22.70 - Medley's esophagus without dysplasia, K59.00 - Constipation, unspecified, R10.9 - Unspecified abdominal pain LDH Today K21.9 - Gastro-esophageal reflux disease without esophagitis, K22.70 - Medley's esophagus without dysplasia, K59.00 - Constipation, unspecified, R10.9 - Unspecified abdominal pain Retic Panel Count Today K21.9 - Gastro-esophageal reflux disease without esophagitis, K22.70 - Medley's esophagus without dysplasia, K59.00 - Constipation, unspecified, R10.9 - Unspecified abdominal pain Iron Today D62 - Acute posthemorrhagic anemia, K21.9 - Gastro-esophageal reflux disease without esophagitis, K22.70 - Medley's esophagus without dysplasia, K59.00 - Constipation, unspecified, R10.9 - Unspecified abdominal pain Celiac Disease Profile Today K21.9 - Gastro-esophageal reflux disease without esophagitis, K22.70 - Medley's esophagus without dysplasia, K59.00 - Constipation, unspecified, R10.9 - Unspecified abdominal pain ANCA Today K21.9 - Gastro-esophageal reflux disease without esophagitis, K22.70 - Medley's esophagus without dysplasia, K59.00 - Constipation, unspecified, R10.9 - Unspecified abdominal pain Allergen, Food Profile 14 Today K21.9 - Gastro-esophageal reflux disease without esophagitis, K22.70 - Medley's esophagus without dysplasia, K59.00 - Constipation, unspecified, R10.9 - Unspecified abdominal pain Pancreatic Elastase, Fecal Today K21.9 - Gastro-esophageal reflux disease without esophagitis, K22.70 - Medley's esophagus without dysplasia, K59.00 - Constipation, unspecified, R10.9 - Unspecified abdominal pain Stool Lactoferrin/WBC Today K21.9 - Gastro-esophageal reflux disease without esophagitis, K22.70 - Medley's esophagus without dysplasia, K58.9 - Irritable bowel syndrome without diarrhea, K59.00 - Constipation, unspecified, R10.9 - Unspecified abdominal pain Immunoglobulins G/A/M/E Today K21.9 - Gastro-esophageal reflux disease without esophagitis, K22.70 - Medley's esophagus without dysplasia, K59.00 - Constipation, unspecified, R10.9 - Unspecified abdominal pain Ova and Parasites 8623 Today K21.9 - Gastro-esophageal reflux disease without esophagitis, K22.70 - Medley's esophagus without dysplasia, K58.9 - Irritable bowel syndrome without diarrhea, K59.00 - Constipation, unspecified, R10.9 - Unspecified abdominal pain Thyroid Stim Hormone (TSH) Today K21.9 - Gastro-esophageal reflux disease without esophagitis, K22.70 - Medley's esophagus without dysplasia, K59.00 - Constipation, unspecified, R10.9 - Unspecified abdominal pain Giardia Lamblia, Stool EIA Today K21.9 - Gastro-esophageal reflux disease without esophagitis, K22.70 - Medley's esophagus without dysplasia, K59.00 - Constipation, unspecified, R10.9 - Unspecified abdominal pain Erythrocyte Sed Rate Today K21.9 - Gastro-esophageal reflux disease without esophagitis, K22.70 - Medley's esophagus without dysplasia, K59.00 - Constipation, unspecified, R10.9 - Unspecified abdominal pain CRP Today K21.9 - Gastro-esophageal reflux disease without esophagitis, K22.70 - Medley's esophagus without dysplasia, K59.00 - Constipation, unspecified, R10.9 - Unspecified abdominal pain ENTERIC PATHOGEN PANEL STOOL Today K21.9 - Gastro-esophageal reflux disease without esophagitis, K22.70 - Medley's esophagus without dysplasia, K58.9 - Irritable bowel syndrome without diarrhea, K59.00 - Constipation, unspecified, R10.9 - Unspecified abdominal pain, R19.7 - Diarrhea, unspecified Comprehensive Metabolic Profil Today K21.9 - Gastro-esophageal reflux disease without esophagitis, K22.70 - Medley's esophagus without dysplasia, K59.00 - Constipation, unspecified, R10.9 - Unspecified abdominal pain CBC W/Diff, Automated Today K21.9 - Gastro-esophageal reflux disease without esophagitis, K22.70 - Medley's esophagus without dysplasia, K58.9 - Irritable bowel syndrome without diarrhea, K59.00 - Constipation, unspecified, R10.9 - Unspecified abdominal pain Vitamin D 1,25-Dihydroxy Today K21.9 - Gastro-esophageal reflux disease without esophagitis, K22.70 - Medley's esophagus without dysplasia, K59.00 - Constipation, unspecified, R10.9 - Unspecified abdominal pain Vitamin B12 Today K21.9 - Gastro-esophageal reflux disease without esophagitis, K22.70 - Medley's esophagus without dysplasia, K59.00 - Constipation, unspecified, R10.9 - Unspecified abdominal pain Medications: New hcmevp-wcoyjico-prlzbhm 24,000-76,000 -120,000 unit (Creon) administer with meals and/or snacks 1 cap PO BID 90 caps 0RF I have examined the patient and the H&P has been reviewed. There are no clinical changes since date of exam.
--- NOTE | 2023-06-19 11:00 | EGD_PTH ---
PATHOLOGY RESULTS PATIENT: SHAQUILLE LITTLEJOHN LOC: EN U#:[id number] AGE/SX: 78/M ROOM: RE06/19/[address]: Dr. Mihir Zuluaga DO : 1945 BED: DIS: 06/19/2023 SPEC #: [id number] RECD: 06/19/23 12:09 STATUS: SHREYA FADUMO #: [id number] AMILCAR: 06/19/23 11:[address]: Mihir Zuluaga DEPT: SURGICAL PATHOLOGY RECD BY: Michelle Maldonado ENTERED: 06/19/23 14:54 SP TYPE: EGD BIOPSY OTHR DR: Yazan Flanagan, PERFORMANCE IMPROVEMENT SPECIALIST-C Tissues: Pyloric sphincter Procedures: Special Stain Group II Surgery Specimen Level IV Alcian Blue/PAS (control) HEADER OPERATION: EGD with biopsy, clip application PRE-OP DIAGNOSIS: Medley's esophagus, GERD, constipation, abdominal pain TISSUE SUBMITTED: Pyloric sphincter MICROSCOPIC DIAGNOSIS Pyloric sphincter, biopsy: Chronic inflammation. Focal intestinal metaplasia. No evidence of dysplasia. See comment. AM:letitia 06/20/2023 COMMENT The results of immunohistochemistry for Helicobacter pylori will be reported separately ([id number]). Immunohistochemistry ([id number]) for P53 and Ki-67 will be performed and results will be reported separately. Alcian blue/PAS stain with matched control supports the above diagnosis. MICROSCOPIC DESCRIPTION Slides are reviewed. GROSS DESCRIPTION Received in fixative is one container labeled with the patient's name and designated pyloric sphincter. The specimen consists of two irregular fragments of light alba soft tissue that in aggregate measure 0.8 x 0.6 x 0.1 cm. The specimen is totally submitted in one cassette. / SJ:letitia 06/19/2023 TC:1 CPT: 58194, 02369
--- NOTE | 2023-06-19 11:00 | IMM_PTH ---
PATHOLOGY RESULTS PATIENT: SHAQUILLE LITTLEJOHN LOC: EN U#:[id number] AGE/SX: 78/M ROOM: RE06/19/[address]: Dr. Mihir Zuluaga DO : 1945 BED: DIS: 06/19/2023 SPEC #: [id number] RECD: 06/19/23 14:00 STATUS: SHREYA FADUMO #: [id number] AMILCAR: 06/19/23 11:[address]: Mihir Zuluaga DEPT: IMMUNOHISTOCHEMISTRY RECD BY: Michelle Maldonado ENTERED: 06/19/23 14:00 SP TYPE: IMMUNO OTHR DR: Yazan Flanagan, BONING ROOM WORKER-C Tissues: Pyloric sphincter Procedures: H Pylori (initial) KI-67 (add) P53 (add) PHYSICIAN & INSTITUTION [place] [address] SPECIMEN INFORMATION: Tissue Source: Pyloric sphincter Clinical Info: Medley's esophagus, GERD, constipation, constipation, abdominal pain Specimen Number: [id number] CPT code: 73100, 77353 x2 METHODOLOGY: Deparaffinized sections of prefer/formalin-fixed tissue or PAP/DQ stained slides are incubated with monoclonal/polyclonal antibodies/oligonucleotide probes. Localization is made via biotin free immunoperoxidase method. Appropriate controls are performed and reacted as expected. Results on target cell population are indicated in the following table: RESULTS: ANTIBODY / CLONE RESULT H Pylori (polyclonal) negative P53 (DO-7) positive, wild type Ki-67 (30-9) positive, low These tests were developed and their performance characteristics determined by [facility]. They may not have been cleared or approved by the U.S. Food and Drug Administration. The FDA has determined that such clearance or approval is not necessary. The above immunohistochemical/dualISH markers are ordered and reviewed by the Pathologist. INTERPRETATION: Pyloric sphincter, biopsy: Negative for Helicobacter pylori organisms. No evidence of dysplasia. AM:letitia 06/21/2023
[2023-06-19 11:21] VITALS: BP 122/67; BP 99/60; PULSE 59; RESP 18; TEMP 36.2; O2SAT 94
[2023-06-19 11:25] VITALS: BP 122/67; BP 91/69; PULSE 61; RESP 18; O2SAT 92
--- NOTE | 2023-06-19 11:25 | OP.EGD_ITS ---
Patient Name: Sudhir Rodas Procedure Date: 06/19/2023 10:56 AM Date of : 1945 Age: 78 Procedure: Upper GI endoscopy Indications: Epigastric abdominal pain, Pernicious anemia Providers: Mihir Zuluaga DO Referring MD: Mihir Zuluaga DO Medicines: Monitored Anesthesia Care Patient Profile: This is a 78 year old male. Refer to note in patient chart for documentation of history and physical. Patient has symptoms of chronic cough and acute nausea. Complications: No immediate complications. Procedure: Pre-Anesthesia Assessment: - Prior to the procedure, a History and Physical was performed, and patient medications and allergies were reviewed. The patient is competent. The risks and benefits of the procedure and the sedation options and risks were discussed with the patient. All questions were answered and informed consent was obtained. Patient identification and proposed procedure were verified by the physician in the pre-procedure area. Mental Status Examination: alert and oriented. Airway Examination: normal oropharyngeal airway and neck mobility. Respiratory Examination: clear to auscultation. CV Examination: normal. Prophylactic Antibiotics: The patient does not require prophylactic antibiotics. Prior Anticoagulants: The patient has taken no anticoagulant or antiplatelet agents. ASA Grade Assessment: III - A patient with severe systemic disease. After reviewing the risks and benefits, the patient was deemed in satisfactory condition to undergo the procedure. The anesthesia plan was to use monitored anesthesia care (MAC). Immediately prior to administration of medications, the patient was re-assessed for adequacy to receive sedatives. The heart rate, respiratory rate, oxygen saturations, blood pressure, adequacy of pulmonary ventilation, and response to care were monitored throughout the procedure. The physical status of the patient was re-assessed after the procedure. After obtaining informed consent, the endoscope was passed under direct vision. Throughout the procedure, the patient's blood pressure, pulse, and oxygen saturations were monitored continuously. The gastroscope was introduced through the mouth, and advanced to the second part of duodenum. The upper GI endoscopy was accomplished without difficulty. The patient tolerated the procedure well. Scope In: 11:08:27 AM Scope Out: 11:16:32 AM Total Procedure Duration Time 0 hours 8 minutes 5 seconds Findings: The examined esophagus was moderately tortuous. A medium-sized hiatal hernia was present. Red blood was found on the greater curvature of the stomach. A single 5 mm angiodysplastic lesion with bleeding was found on the greater curvature of the stomach. For hemostasis, three hemostatic clips were successfully placed. Clip machine erector: Dropcam. There was no bleeding at the end of the procedure. A small amount of food (residue) was found in the gastric antrum. Removal was accomplished with a Capone net. Localized granular mucosa was found at the pylorus. Biopsies were taken with a cold forceps for histology. Verification of patient identification for the specimen was done. Estimated blood loss was minimal. The second portion of the duodenum was normal. Impression: - Tortuous esophagus. - Medium-sized hiatal hernia. - Red blood in the greater curvature of the stomach. - A single bleeding angiodysplastic lesion in the stomach. Clips were placed. Clip machine erector: Dropcam. - A small amount of food (residue) in the stomach. Removal was successful. - Granular gastric mucosa. Biopsied. - Normal second portion of the duodenum. Recommendation: - Discharge patient to home. - Resume previous diet. - Continue present medications. - Await pathology results. - Repeat upper endoscopy for surveillance. - Return to GI office. Procedure Code(s): --- Professional --- 22165, 59, Esophagogastroduodenoscopy, flexible, transoral; with control of bleeding, any method 23275, Esophagogastroduodenoscopy, flexible, transoral; with removal of foreign body(s) 55224, 51, Esophagogastroduodenoscopy, flexible, transoral; with biopsy, single or multiple CPT copyright 2021 [employer] [employer]. All rights reserved. The codes documented in this report are preliminary and upon inspector barrel review may be revised to meet current compliance requirements. Mihir Zuluaga DO 06/19/2023 11:25:21 AM This report has been signed electronically. Number of Addenda: 0 Note Initiated On: 06/19/2023 10:56 AM
--- NOTE | 2023-06-19 11:25 | OP.CCLET_ITS ---
06/19/2023 Helga Elliott Re : Upper GI endoscopy procedure for Sudhir Flanagan This procedure was performed on Monday, June 19, 2023. My impressions and recommendations are as follows: Impressions : - Tortuous esophagus. - Medium-sized hiatal hernia. - Red blood in the greater curvature of the stomach. - A single bleeding angiodysplastic lesion in the stomach. Clips were placed. Clip bacon slicer: OneTwoSee. - A small amount of food (residue) in the stomach. Removal was successful. - Granular gastric mucosa. Biopsied. - Normal second portion of the duodenum. Recommendations : - Discharge patient to home. - Resume previous diet. - Continue present medications. - Await pathology results. - Repeat upper endoscopy for surveillance. - Return to GI office. My findings are described in the full procedure note, which is enclosed. If I can be of further assistance, please feel free to contact me at . Sincerely, Mihir Zuluaga, 06/19/2023 11:25:21 AM This report has been signed electronically.
[2023-06-19 11:30] VITALS: BP 102/62; BP 122/67; PULSE 60; RESP 18; O2SAT 94
[2023-06-19 11:35] VITALS: BP 122/67; BP 98/62; PULSE 59; RESP 12; TEMP 36.1; O2SAT 94
[2023-06-19 11:57] VITALS: BP 122/67
== END 2023-06-19 12:10 | disposition home or self-care (01) ==
LOC: EN 09:30 → AC 09:30
PROVIDERS: PCP Nurse Practitioner Primary Care; Referring Provider Internal Medicine Gastroenterology; Visit Provider Internal Medicine Gastroenterology
PROC: 0DJ08ZZ Inspection of Upper Intestinal Tract, Via Natural or Artificial Opening Endoscopic (ICD-10-PCS; CPT 43235; principal; 2023-06-19 10:55)
DX: K31.9 Disease of stomach and duodenum, unspecified (principal); J44.9 Chronic obstructive pulmonary disease, unspecified; K44.9 Diaphragmatic hernia without obstruction or gangrene; Q43.8 Other specified congenital malformations of intestine; K22.70 Barrett's esophagus without dysplasia; E78.00 Pure hypercholesterolemia, unspecified; Z79.82 Long term (current) use of aspirin; Z79.899 Other long term (current) drug therapy; Z87.891 Personal history of nicotine dependence
CPT/HCPCS: 43255; 43247; 43239; 88305; 88313; 88341; 88342; J7120; J2405

== ENCOUNTER → 2023-11-13 | Outpatient (CLI) | payer MEDICARE, SELFPAY ==
--- NOTE | 2023-11-13 10:19 | NM_ITS ---
CLINICAL: 78-year-old male with history of clinical gastroparesis. SEMI-SOLID PHASE 99m Tc SULFUR COLLOID GASTRIC EMPTYING STUDY COMPARISON: None available FINDINGS: The patient was administered 1.0 mCi of 99m Tc sulfur colloid mixed with oatmeal and consumed per os. Image acquisitions in the anterior -posterior projections were obtained for 60 minutes. There is prompt visualization of the stomach. There is no gastroesophageal reflux identified. First order kinetics are maintained throughout the duration of the acquisitions. The T ? linear fit was calculated to be 83.17 minutes, (Normal: 12-56 minutes). NM/Gastric Emptying Study IMPRESSION: 1. ABNORMAL 99m Tc sulfur colloid semi-solid phase (oatmeal) gastric emptying imaging examination. A. There is delayed semi-solid phase gastric emptying compared to normal controls with maintained first order kinetics throughout all components of the examination. (Primo et al, J Nucl Med Tech 38: 186, 2010). Electronically Signed: Sunil Carmona DO at 11:49 EDT ,
== END | disposition home or self-care (01) ==
LOC: NM 10:19
PROVIDERS: PCP Nurse Practitioner Primary Care; Referring Provider Internal Medicine Gastroenterology; Visit Provider Internal Medicine Gastroenterology
DX: R10.9 Unspecified abdominal pain (principal)
CPT/HCPCS: 78264; A9541